=== PATIENT | male | born 1985 | race Caucasian/White ===

== ENCOUNTER 2020-05-17 15:41 | Inpatient (IN) ==
[2020-05-17] MEDS ORDERED: FAMOTIDINE 20MG IV PUSH 20 MG/5 ML SYR IV STA (16:06)
[2020-05-17] MEDS ORDERED: methylPREDNISolone 125 MG/2 ML VIAL IV STA (16:06)
--- NOTE | 2020-05-17 16:13 | Emergency Department Note ---
History of Present Illness General Chief complaint: Shortness of Breath/Dyspnea Stated complaint: [id number] RACING-SORE THROAT Time Seen by Provider: 05/17/20 15:50 History of Present Illness Maximum Pain Intensity: 10 This is a 35-year-old male that presents to the emergency department via private vehicle with complaints "headache, chills, dizzy, shortness of breath, heart racing, sore throat". The patient notes that around Zeinab time of this past year he began feeling nauseous and dizzy. He notes he took some time off of work. He had a Covid test for Monday which was negative. He then began to feel better. He then noted he developed symptoms that he attributes to being similar to bronchitis. He had chest tightness and a cough. When he lays on his back it is worse and he feels like he is being "smothered". He also times feels like he is choking. He has tried Vicks VapoRub, cough suppressant, albuterol and nebulized without relief. At times he will feel his heart race. Today he vomited. He also feels as though he has to burp. He notes some mild chest pain that he believes is secondary to coughing. No hemoptysis. He notes that the cough is constant but the pain and discomfort can be hit and miss. No history of TX or PE. Patient had a 15 mL of Benadryl also earlier today as he noted some tongue swelling. He rates his overall discomfort at this time as a 10/10. Home Medications Medication Instructions Recorded Confirmed Type albuterol sulfate [Ventolin HFA] 2 puff INHALATION DIRECTED PRN 05/17/20 05/17/20 History ascorbic acid (vitamin C) [Vitamin 500 mg PO DAILY 05/17/20 05/17/20 History C] Allergies Allergy/AdvReac Type Severity Reaction Status Date / Time banana Allergy Severe Anaphylaxis Verified 05/17/20 16:49 erythromycin base Allergy Severe Anaphylaxis Verified 05/17/20 16:49 Penicillins Allergy Severe Anaphylaxis Verified 05/17/20 16:49 shellfish derived Allergy Severe Anaphylaxis Verified 05/17/20 16:49 strawberry Allergy Severe Anaphylaxis Verified 05/17/20 16:49 chocolate flavor Allergy Intermediate Hives Verified 05/17/20 16:49 Past Med/Surg History Medical History Penicillin allergy Surgical History No pertinent past surgical history Social History Smoking Status: Never smoker Hx Alcohol Use: Yes Alcohol type: hard liquor Hx Substance Use: Yes Last Used Substance: Days (ago) Last Used Substance Other:: new years Preferred Language: [place]i Communication Ability: Effective Beliefs That Will Affect Care: Amish Amish Beliefs: does not eat pork Current Living Situation: Family Current Living Situation Comment: girlfriend and children Other Information That Helps Us Care for You: No Feels Safe at Home: Yes Safety Concerns: Feels Safe At This Time Assistive Devices: None Review of Systems A total of 10 systems reviewed and were otherwise negative Physical Exam Vital Signs Vital Signs - 24 hr 05/17/20 15:44 05/17/20 16:23 05/17/20 16:25 Temperature 37.7 C H Temperature Source Temporal Artery Scan Pulse Rate 128 H 127 H 128 H Pulse Rate [Apical] 127 H Pulse Rate from SpO2 Sensor 175 H Pulse Rhythm Regular Pulse Rhythm [Apical] Regular Pulse Strength [Apical] Normal Respiratory Rate 24 28 H 32 H Respiratory Effort / Characteristics Non-Labored Spontaneous Nasal Flaring Respiratory Depth Normal Respiratory Pattern Regular Blood Pressure 161/108 H 177/122 H Blood Pressure [Right Arm] 177/122 H Blood Pressure Mean 125 140 Blood Pressure Mean [Right Arm] 140 Blood Pressure Position [Right Arm] Semi-fowlers Pulse Oximetry 96 97 96 Oxygen Delivery Method Room Air Room Air Room Air Sepsis Recent Fever Within 48 Hours Yes Sepsis New/Unexplained Change in Mental Status N/A Sepsis Action Taken by Nursing No Action Required 05/17/20 17:04 05/17/20 17:30 05/17/20 18:00 Temperature Temperature Source Pulse Rate Pulse Rate [Apical] Pulse Rate from SpO2 Sensor 129 H 119 H 117 H Pulse Rhythm Pulse Rhythm [Apical] Pulse Strength [Apical] Respiratory Rate Respiratory Effort / Characteristics Respiratory Depth Respiratory Pattern Blood Pressure Blood Pressure [Right Arm] Blood Pressure Mean Blood Pressure Mean [Right Arm] Blood Pressure Position [Right Arm] Pulse Oximetry 98 99 96 Oxygen Delivery Method Sepsis Recent Fever Within 48 Hours Sepsis New/Unexplained Change in Mental Status Sepsis Action Taken by Nursing 05/17/20 18:30 05/17/20 18:43 05/17/20 19:00 Temperature Temperature Source Pulse Rate 124 H 118 H Pulse Rate [Apical] Pulse Rate from SpO2 Sensor 122 H 131 H 118 H Pulse Rhythm Pulse Rhythm [Apical] Pulse Strength [Apical] Respiratory Rate 31 H 28 H Respiratory Effort / Characteristics Respiratory Depth Respiratory Pattern Blood Pressure 181/119 H Blood Pressure [Right Arm] Blood Pressure Mean 139 Blood Pressure Mean [Right Arm] Blood Pressure Position [Right Arm] Pulse Oximetry 100 98 98 Oxygen Delivery Method Sepsis Recent Fever Within 48 Hours Sepsis New/Unexplained Change in Mental Status Sepsis Action Taken by Nursing 05/17/20 19:30 05/17/20 20:00 Temperature Temperature Source Pulse Rate 120 H Pulse Rate [Apical] Pulse Rate from SpO2 Sensor Pulse Rhythm Pulse Rhythm [Apical] Pulse Strength [Apical] Respiratory Rate 30 H 16 Respiratory Effort / Characteristics Respiratory Depth Respiratory Pattern Blood Pressure Blood Pressure [Right Arm] Blood Pressure Mean Blood Pressure Mean [Right Arm] Blood Pressure Position [Right Arm] Pulse Oximetry Oxygen Delivery Method Sepsis Recent Fever Within 48 Hours Sepsis New/Unexplained Change in Mental Status Sepsis Action Taken by Nursing VITAL SIGNS - Vital signs and nursing notes were reviewed. Hypertensive, tachycardic, tachypneic and borderline febrile. Saturating well on room air. GENERAL -35-year-old male appearing his stated age who is in no acute distress. Communicates well with provider and answers questions appropriately. SKIN - Without rashes. No meningeal or petechial rash. HEAD - NC/AT. EYES - PERRL with EOMI bilaterally. Sclera anicteric. EARS - No deformities of external structures noted on gross examination bilaterally. NOSE - Midline and without cyanosis. No epistaxis or purulent drainage noted. MOUTH/OROPHARYNX - Without perioral cyanosis. NECK - Neck with FROM. No nuchal rigidity. LUNGS -decreased breath sounds bilaterally. CARDIAC - RRR with S1/S2. No murmur, rubs, or gallops appreciated. ABDOMEN - Abdominal contour without pulsations or visible masses. BS normoactive all four quadrants. No tenderness, palpable masses, hepatosplenomegaly, or ascites noted. EXTREMITIES - No clubbing or peripheral cyanosis. No pretibial edema present. +5/5 strength noted in UE/LE bilaterally. NEUROLOGIC - Cranial nerves II through XII grossly intact. PSYCH - A&O, and cooperates fully with examiner. Pt is very pleasant and int eracts well with examiner. Course Administered Medications Acetaminophen (Acetaminophen 325 Mg Tab) 650 mg PO Q4H PRN PRN Reason: Pain or Fever Stop: 06/16/20 22:18 Last Admin: 05/17/20 23:18 Dose: 650 mg Documented by: [id number] Heparin Sodium (Porcine) (Heparin Sod 5,000 Unit/0.5 Ml Vial) 5,000 units SQ Q8 NERI Stop: 06/16/20 22:18 Last Admin: 05/17/20 23:58 Dose: 5,000 units Documented by: [id number] Discontinued Medications Diphenhydramine HCl (Diphenhydramine 50 Mg/Ml Vial) 25 mg IV NOW STA Stop: 05/17/20 18:28 Last Admin: 05/17/20 18:30 Dose: 25 mg Documented by: [id number] Furosemide (Furosemide 40 Mg/4 Ml Vial) 40 mg IV NOW STA Stop: 05/17/20 19:02 Last Admin: 05/17/20 19:48 Dose: 40 mg Documented by: [id number] Sodium Chloride (Nss 1000ml) 1,000 mls @ 999 mls/hr IV .Q1H1M NERI Stop: 05/17/20 17:15 Last Infusion: 05/17/20 18:22 Dose: 0 mls/hr Documented by: [id number] Admin: 05/17/20 17:21 Dose: 999 mls/hr Documented by: [id number] Famotidine (Pepcid 20mg Iv Push) 20 mg in 5 mls @ 2.5 mls/min IV NOW STA Stop: 05/17/20 16:07 Last Admin: 05/17/20 17:21 Dose: 2.5 mls/min Documented by: [id number] Furosemide 40 mg/ Syringe 4 mls @ 4 mls/min IV 0000 ONE Stop: 05/18/20 00:01 Last Admin: 05/17/20 23:19 Dose: 4 mls/min Documented by: [id number] Ioversol (Optiray 320 125ml) 120 ml IV ONCE ONE Stop: 05/17/20 18:29 Last Admin: 05/17/20 18:29 Dose: 120 ml Documented by: [id number] Methylprednisolone (Methylprednisolone 125 Mg/2 Ml Vial) 125 mg IV NOW STA Stop: 05/17/20 16:07 Last Admin: 05/17/20 17:21 Dose: 125 mg Documented by: [id number] Medical Decision Making Laboratory Data Result diagrams: 05/17/20 16:44 05/17/20 16:44 Lab Results 05/17/20 05/17/20 05/17/20 Range/Units 16:27 16:27 16:44 WBC 8.34 (4.8-10.8) K/uL RBC 4.60 L (4.7-6.1) M/uL Hgb 11.8 L (14.0-18.0) g/dL Hct 36.6 L (42-52) % MCV 79.6 L (80-100) fL MCH 25.7 (25-34) pg MCHC 32.2 (32-36) g/dL RDW Std Deviation 41.9 (36.4-46.3) fL RDW Coeff of [place] 14.6 H (11.5-14.5) % Plt Count 369 (130-400) K/uL MPV 10.3 (7.4-10.4) fL Immature Gran % (Auto) 0.1 % Neut % (Auto) 74.7 % Lymph % (Auto) 17.9 % [place] % (Auto) 6.7 % Eos % (Auto) 0.5 % Baso % (Auto) 0.1 % Neut # (Auto) 6.23 (1.4-6.5) K/uL Lymph # (Auto) 1.49 (1.2-3.4) K/uL [place] # (Auto) 0.56 (0.11-0.59) K/uL Eos # (Auto) 0.04 (0-0.5) K/uL Baso # (Auto) 0.01 (0-0.2) K/uL Immature Gran # (Auto) 0.01 (0.00-0.02) K/uL PT (9.0-12.0) Seconds INR (0.9-1.1) APTT (21.0-31.0) Seconds PTT Ratio Sodium (136-145) mmol/L Potassium (3.5-5.1) mmol/L Chloride (98-107) mmol/L Carbon Dioxide (21-32) mmol/L Anion Gap (3-11) BUN (7-18) mg/dl Creatinine (0.6-1.4) mg/dl Est Cr Clr Drug Dosing ml/min Est GFR ( Amer) Est GFR (Non-Af Amer) BUN/Creatinine Ratio (10-20) Glucose (70-99) mg/dl Calcium (8.5-10.1) mg/dl Magnesium (1.8-2.4) mg/dl Total Bilirubin (0.2-1) mg/dl AST (15-37) U/L ALT (12-78) U/L Alkaline Phosphatase (45-117) U/L Troponin I (0-0.045) ng/ml NT-Pro-B Natriuret Pep (0-450) pg/ml Total Protein (6.4-8.2) gm/dl Albumin (3.4-5.0) gm/dl Globulin (2.5-4.0) gm/dl Albumin/Globulin Ratio (0.9-2) Procalcitonin (0-0.5) ng/ml COVID-19 Eval [facility] SARS-[facility]-2, RNA, NAAT NEGATIVE (NEGATIVE) 05/17/20 05/17/20 05/17/20 Range/Units 16:44 16:44 16:44 WBC (4.8-10.8) K/uL RBC (4.7-6.1) M/uL Hgb (14.0-18.0) g/dL Hct (42-52) % MCV (80-100) fL MCH (25-34) pg MCHC (32-36) g/dL RDW Std Deviation (36.4-46.3) fL RDW Coeff of [place] (11.5-14.5) % Plt Count (130-400) K/uL MPV (7.4-10.4) fL Immature Gran % (Auto) % Neut % (Auto) % Lymph % (Auto) % [place] % (Auto) % Eos % (Auto) % Baso % (Auto) % Neut # (Auto) (1.4-6.5) K/uL Lymph # (Auto) (1.2-3.4) K/uL [place] # (Auto) (0.11-0.59) K/uL Eos # (Auto) (0-0.5) K/uL Baso # (Auto) (0-0.2) K/uL Immature Gran # (Auto) (0.00-0.02) K/uL PT 10.7 (9.0-12.0) Seconds INR 1.1 (0.9-1.1) APTT 26.0 (21.0-31.0) Seconds PTT Ratio 1.0 Sodium 142 (136-145) mmol/L Potassium 4.1 (3.5-5.1) mmol/L Chloride 108 H (98-107) mmol/L Carbon Dioxide 27 (21-32) mmol/L Anion Gap 7.0 (3-11) BUN 12 (7-18) mg/dl Creatinine 1.42 H (0.6-1.4) mg/dl Est Cr Clr Drug Dosing 117.7 ml/min Est GFR ( Amer) 73.1 Est GFR (Non-Af Amer) 63.1 BUN/Creatinine Ratio 8.3 L (10-20) Glucose 105 H (70-99) mg/dl Calcium 9.2 (8.5-10.1) mg/dl Magnesium 2.3 (1.8-2.4) mg/dl Total Bilirubin 0.4 (0.2-1) mg/dl AST 17 (15-37) U/L ALT 52 (12-78) U/L Alkaline Phosphatase 54 (45-117) U/L Troponin I 0.024 (0-0.045) ng/ml NT-Pro-B Natriuret Pep 1536 H Cancelled (0-450) pg/ml Total Protein 7.0 (6.4-8.2) gm/dl Albumin 3.4 (3.4-5.0) gm/dl Globulin 3.6 (2.5-4.0) gm/dl Albumin/Globulin Ratio 0.9 (0.9-2) Procalcitonin (0-0.5) ng/ml COVID-19 Eval Order SARS-CoV-2, RNA, NAAT (NEGATIVE) 05/17/20 Range/Units 16:44 WBC (4.8-10.8) K/uL RBC (4.7-6.1) M/uL Hgb (14.0-18.0) g/dL Hct (42-52) % MCV (80-100) fL MCH (25-34) pg MCHC (32-36) g/dL RDW Std Deviation (36.4-46.3) fL RDW Coeff of [place] (11.5-14.5) % Plt Count (130-400) K/uL MPV (7.4-10.4) fL Immature Gran % (Auto) % Neut % (Auto) % Lymph % (Auto) % [place] % (Auto) % Eos % (Auto) % Baso % (Auto) % Neut # (Auto) (1.4-6.5) K/uL Lymph # (Auto) (1.2-3.4) K/uL [place] # (Auto) (0.11-0.59) K/uL Eos # (Auto) (0-0.5) K/uL Baso # (Auto) (0-0.2) K/uL Immature Gran # (Auto) (0.00-0.02) K/uL PT (9.0-12.0) Seconds INR (0.9-1.1) APTT (21.0-31.0) Seconds PTT Ratio Sodium (136-145) mmol/L Potassium (3.5-5.1) mmol/L Chloride (98-107) mmol/L Carbon Dioxide (21-32) mmol/L Anion Gap (3-11) BUN (7-18) mg/dl Creatinine (0.6-1.4) mg/dl Est Cr Clr Drug Dosing ml/min Est GFR ( Amer) Est GFR (Non-Af Amer) BUN/Creatinine Ratio (10-20) Glucose (70-99) mg/dl Calcium (8.5-10.1) mg/dl Magnesium (1.8-2.4) mg/dl Total Bilirubin (0.2-1) mg/dl AST (15-37) U/L ALT (12-78) U/L Alkaline Phosphatase (45-117) U/L Troponin I (0-0.045) ng/ml NT-Pro-B Natriuret Pep (0-450) pg/ml Total Protein (6.4-8.2) gm/dl Albumin (3.4-5.0) gm/dl Globulin (2.5-4.0) gm/dl Albumin/Globulin Ratio (0.9-2) Procalcitonin 0.06 (0-0.5) ng/ml COVID-19 Eval Order SARS-CoV-2, RNA, NAAT (NEGATIVE) Imaging Data Radiologist's Impression: CT angio chest PE protocol CT DOSE: 929.39 mGy.cm HISTORY: 35 years-old Male with Chest pain, dyspnea, tachypnea, cough. Acute atypical chest pain with tachypnea TECHNIQUE: Multiple CTA images of the chest were obtained after the intravenous administration of 120 ml Optiray 320. Coronal and sagittal MIPS were obtained from the axial data set and were submitted for review. All measurements were obtained according to NASCET criteria. A dose lowering technique was utilized adhering to the principles of ALARA. COMPARISON: None. FINDINGS: CTA: Moderate enlargement of the cardiac silhouette. No thoracic aortic aneurysm. Patency of the imaged great vessels. Pulmonary artery is opacified to level of the lumbar segments and demonstrates no filling defects to suggest thromboembolic disease. Segmental and subsegmental branches are not well seen secondary to contrast bolus timing. CT CHEST: Unremarkable thyroid. Nonspecific mildly enlarged left axillary chain lymph node, 1.2 cm. Residual thymic tissue of the mediastinum. Trace left and small moderate right pleural effusions. No pneumothorax. Mild bilateral bronchial wall thickening. Mild patchy bibasilar groundglass opacities. 7 mm nodular opacity of the basal right lower lobe, image 101 series 4. Central airways are patent. Hepatomegaly with hepatic steatosis. Gynecomastia. No acute fracture. IMPRESSION: 1. Cardiomegaly without evidence of pulmonary emboli. 2. Right greater than left pleural effusions with minimal bibasilar densities suggestive of atelectasis versus pneumonitis. 3. 7 mm solid nodule of the right lower lobe. 4. Mild bilateral bronchial wall thickening suggests bronchitis versus reactive airway disease. 5. Hepatic steatosis. Please refer to below summary of Fleischner criteria recommendations for follow- up of incidental CT nodules (Joseph Asher, Guidelines for management of small pulmonary nodules detected on CT scans: A statement from the Fleischner Society, Radiology 237: [phone].) SOLID NODULES Solitary nodule size: <6 mm * Low risk patients: no follow-up needed * high risk patients: optional CT at 12 months Solitary nodule size: 6-8 mm * Low risk patients: follow-up at 6-12 months, then consider further follow-up at 18-24 months * high risk patients: initial follow-up CT at 6-12 months and then at 18-24 months if no change Note: newly detected indeterminate nodule in persons 35 years of age or older. * Low risk patients: minimal or absent history of smoking and/or other known risk factors * high risk patients: history of smoking or of other known risk factors (e.g. first degree relative with lung cancer, or exposure to asbestos, radon, uranium) * if a nodule up to 8 mm is partly solid or is ground glass further follow-up is required after 24 months to exclude possible slow growing adenocarcinoma (KANE) ACT 112: Negative or not required by law. The above report was generated using voice recognition software. It may contain grammatical, syntax or spelling errors. Electronically signed by: Cayetano Bennett M.D. 05/17/2020 6:51 PM MDM Narrative Patient was seen and evaluated as above in room C1. Review was performed of nursing notes and vital signs. After obtaining a thorough history and physical examination the above work up was performed. Patient presents to us today with headache, chills, dizziness, shortness of breath, racing heart and inability to lay flat. On examination there are decreased breath sounds. The patient does have increased work of breathing on examination and is most comfortable sitting in the upright position at the edge of the examination bed. The patient's vital signs on exam to reveal borderline febrile state, tachycardia as well as hypertension. Patient is also tachypneic. Options of care were discussed with the patient. I do believe that it is in the patient's best interest to have a CTA of the chest to rule out PE and further evaluate presentation here today. Unfortunately, the patient does note that he has had anaphylaxis secondary to IV contrast and often requires premedication. The patient states that this is normally 1 hour prior to the imaging. He already had Benadryl prior to arrival therefore while waiting he was given Solu-Medrol here as well as Pepcid for premedication prior to IV contrast administration. I also began hydration but this was stopped at about [address] scan was then obtained. Just before he went to the CT scanner I did provide another dose of Benadryl which was felt to be appropriate at that time. Care was taken so as not to give too much Benadryl noting what he had prior to arrival. Patient was able to successfully undergo CT scanning without any significant adverse reaction. CT scan results as above. There is no PE. There is cardiomegaly. There are also pleural effusions. Pleural effusions are likely the etiology behind the patient's dyspnea. Laboratory studies reveal no leukocytosis. Mild anemia noted. No coagulopathy. Creatinine elevated at 1.42. BNP mildly elevated at 1536. Troponin detectable but still within normal range. Pro-Valentino within normal limits. Covid testing negative. The patient does not appear infectious. He was given a dose of IV Lasix for findings here today. I do believe that further evaluation and management in inpatient setting is warranted. The patient at this point persists with tachycardia and dyspnea. Case discussed with the attending physician and subsequently the hospitalist. Please refer to further documentation regarding his stay. EKG was reviewed by myself and found to be sinus tachycardia rate of 128 bpm and per my interpretation does reveal T wave inversions in lead II, III, V1, V4, V5 and V6. There was T wave flattening noted as well. No ST elevation. No true ST segment depression. No previous for comparison. An order was placed for continuous cardiac monitoring. The monitor shows a rate of 124 with sinus tach rhythm. GCS: 15 In the evaluation and treatment of this patient, the following differential diagnoses were considered: TX, ASC, Dysrhythmia, Angina, Mediastinitis, GERD, Esophagitis, PE, Pneumonia, Bronchitis, Costochondritis, Rib Fracture, Zoster, congestive heart failure, cardiomyopathy, among others. Impression & Plan Bilateral pleural effusion, Cardiomegaly, Dyspnea, ROSSY (acute kidney injury) Discharge Plan Visit Data Chief Complaint: Shortness of Breath/Dyspnea Stated Complaint: [id number]-HEART RACING-SORE THROAT ED Provider: [facility] ED Midlevel Provider: Rohith Brown Discharge Problem: Bilateral pleural effusion, Cardiomegaly, Dyspnea, ROSSY (acute kidney injury) Patient Disposition: Admitted As Inpatient Condition: Good Discharge Instructions Interventions: ED Discharge Assessment Last Done: 05/17/20 21:39
[2020-05-17] MEDS ORDERED: SODIUM CHLORIDE 0.9% 1000ML 1,000 ML IV SCH (16:15)
[2020-05-17 17:01] LABS: Basophils # (auto) 0.01 K/uL (0-0.2); Basophils % (auto) 0.1 %; Eosinophils # (auto) 0.04 K/uL (0-0.5); Eosinophils % (auto) 0.5 %; Hematocrit (blood only) 36.6 % (42-52); Hemoglobin 11.8 g/dL (14.0-18.0); Immature Granulocytes # (auto) 0.01 K/uL (0.00-0.02); Immature Granulocytes % (auto) 0.1 %; Lymphocytes # (auto) 1.49 K/uL (1.2-3.4); Lymphocytes % (auto) 17.9 %; Mean Corpuscular Hemoglobin 25.7 pg (25-34); Mean Corpuscular Hgb Conc 32.2 g/dL (32-36); Mean Corpuscular Volume 79.6 fL (80-100); Mean Platelet Volume 10.3 fL (7.4-10.4); Monocytes # (auto) 0.56 K/uL (0.11-0.59); Monocytes % (auto) 6.7 %; Neutrophils # (auto) 6.23 K/uL (1.4-6.5); Neutrophils % (auto) 74.7 %; Platelet Count 369 K/uL (130-400); RDW Coefficient of Variation 14.6 % (11.5-14.5); RDW Standard Deviation 41.9 fL (36.4-46.3); White Blood Count 8.34 K/uL (4.8-10.8)
[2020-05-17 17:13] LABS: INR 1.1 (0.9-1.1); Prothrombin Time 10.7 Seconds (9.0-12.0)
[2020-05-17 17:19] LABS: Albumin Level 3.4 gm/dl (3.4-5.0); BUN Creatinine Ratio 8.3 (10-20); Calcium 9.2 mg/dl (8.5-10.1); Creatinine Clr Calc Pharmacy 117.7 ml/min; Est GFR (African American) 73.1; Est GFR (Non-African American) 63.1; Magnesium 2.3 mg/dl (1.8-2.4); Potassium 4.1 mmol/L (3.5-5.1)
[2020-05-17 17:24] LABS: Albumin Globulin Ratio 0.9 (0.9-2); Bilirubin,Total 0.4 mg/dl (0.2-1); Globulin 3.6 gm/dl (2.5-4.0); Troponin I 0.024 ng/ml (0-0.045)
[2020-05-17] MEDS ORDERED: diphenhydrAMINE 50 MG/ML VIAL IV STA (18:27)
[2020-05-17] MEDS ORDERED: OPTIRAY 320 125ml IV ONE (18:28)
--- NOTE | 2020-05-17 18:52 | CT Scan Report ---
CT angio chest PE protocol CT DOSE: 929.39 mGy.cm HISTORY: 35 years-old Male with Chest pain, dyspnea, tachypnea, cough. Acute atypical chest pain wi th tachypnea TECHNIQUE: Multiple CTA images of the chest were obtained after the intravenous administration of 120 ml Optiray 320. Coronal and sagittal MIPS were obtained from the axial data set and were submitted for review. All measurements were obtained according to NASCET criteria. A dose lowering technique w as utilized adhering to the principles of ALARA. COMPARISON: None. FINDINGS: CTA: Moderate enlargement of the cardiac silhouette. No thoracic aortic aneurysm. Patency of the imaged gr eat vessels. Pulmonary artery is opacified to level of the lumbar segments and demonstrates no fillin g defects to suggest thromboembolic disease. Segmental and subsegmental branches are not well seen se condary to contrast bolus timing. CT CHEST: Unremarkable thyroid. Nonspecific mildly enlarged left axillary chain lymph node, 1.2 cm. Residual th ymic tissue of the mediastinum. Trace left and small moderate right pleural effusions. No pneumothora x. Mild bilateral bronchial wall thickening. Mild patchy bibasilar groundglass opacities. 7 mm nodula r opacity of the basal right lower lobe, image 101 series 4. Central airways are patent. Hepatomegaly with hepatic steatosis. Gynecomastia. No acute fracture. IMPRESSION: 1. Cardiomegaly without evidence of pulmonary emboli. 2. Right greater than left pleural effusions with minimal bibasilar densities suggestive of atelectas is versus pneumonitis. 3. 7 mm solid nodule of the right lower lobe. 4. Mild bilateral bronchial wall thickening suggests bronchitis versus reactive airway disease. 5. Hepatic steatosis. Please refer to below summary of Fleischner criteria recommendations for follow-up of incidental CT n odules (Joseph Asher, Guidelines for management of small pulmonary nodules detected on CT scans: A sta tement from the Fleischner Society, Radiology 237: [phone].) SOLID NODULES Solitary nodule size: <6 mm * Low risk patients: no follow-up needed * high risk patients: optional CT at 12 months Solitary nodule size: 6-8 mm * Low risk patients: follow-up at 6-12 months, then consider further follow-up at 18-24 months * high risk patients: initial follow-up CT at 6-12 months and then at 18-24 months if no change Note: newly detected indeterminate nodule in persons 35 years of age or older. * Low risk patients: minimal or absent history of smoking and/or other known risk factors * high risk patients: history of smoking or of other known risk factors (e.g. first degree relative with lung cancer, or exposure to asbestos, radon, uranium) * if a nodule up to 8 mm is partly solid or is ground glass further follow-up is required after 24 m onths to exclude possible slow growing adenocarcinoma (KANE) ACT 112: Negative or not required by law. The above report was generated using voice recognition software. It may contain grammatical, syntax o r spelling errors. Electronically signed by: Cayetano Bennett M.D. 05/17/2020 6:51 PM
[2020-05-17] MEDS ORDERED: FUROSEMIDE 40 MG/4 ML VIAL IV STA (19:01)
--- NOTE | 2020-05-17 20:38 | History & Physical Report ---
Date of Service May 17, 2020 Assessment & Plan (1) Dyspnea: 35 yo M no PMHx admitted for dyspnea, found to have enlarged cardiac silhouette and bilateral pleural effusions. Dyspnea and tachypnea without hypoxia: Reports 1-2 weeks of worsening dyspnea and inability to lie flat or bend forward without feeling like he is "choking". Noted to be hypertensive, tachycardic, tachypneic in ER. Not noted to be hypoxic. CT PE without signs of PE, some bronchial inflammation possibly consistent with bronchitis. Bilateral pleural effusions and atelectasis noted. CXR noted enlarged cardiac silhouette. While patient did meet several SIRS criteria in the ER, no findings on imaging or labwork to suggest pneumonia or other infectious source. COVID 19 testing negative. Lasix 40 mg IV x1 given, with repeat dose at midnight 05/18. Suspect underlying cardiac etiology given enlarged cardiac silhouette and bilateral pleural effusions, elevated pro-BNP to 1536. TTE in the morning. Incentive spirometer every hour while awake. ? ROSSY: In ER patient found to have creatinine 1.42, no baseline to compare. Given findings suggestive of CHF, concern for decreased forward flow. Patient does not examine as clinically dry. Will repeat in the morning to see if creatinine has improved with Lasix admi nistration. Pulmonary nodule: 7 mm solid nodule noted in the right lower lobe. Patient does not have a history of smoking cigarettes, however prior to this March was a relatively chronic marijuana smoker. Will require follow-up per Fleischner criteria. CODE STATUS: Full code FEN GI: Low-sodium diet pending TTE DVT prophylaxis: Heparin 5000u q8h Dispo: Telemetry for continuous cardiac monitoring (2) Enlarged heart: (3) Bilateral pleural effusion: (4) Pulmonary nodule: (5) ROSSY (acute kidney injury): History of Present Illness Chief Complaint: Dyspnea Primary Care Provider: NO PCP 35 yo M no PMHx presented to the ER for complaints of worsening dyspnea over the last 10 or so days, such that he cannot lie flat or bend forward without feeling like he is "choking". Reports that around New Year's, he had some episodes of shortness of breath but that seemed to go away after couple of days. Over the last 10 days however, he has been barely getting any rest at night because when he lies flat he feels like he cannot breathe, feels most comfortable sitting upright. Also starts to feel short of breath when he bends over to tie his shoes. No tobacco smoking history, but does endorse a history of marijuana smoking prior to his illness around '. Also endorses a cough during this time, nonproductive, and due to the amount of coughing has started to have some chest tightness. No chest pain down the arm, up the jaw. No dizziness or headache. Did try home nebulizer treatments with mild relief however he would start to feel his heart race. In the ER patient was noted to be tachycardic, hypertensive, tachypneic, afebrile, saturating well on room air. WBCs normal, creatinine 1.42, proBNP 1536. Covid negative. CT PE protocol performed without findings suggestive of PE or pneumonia Allergies Allergy/AdvReac Type Severity Reaction Status Date / Time banana Allergy Severe Anaphylaxis Verified 05/17/20 16:49 erythromycin base Allergy Severe Anaphylaxis Verified 05/17/20 16:49 Penicillins Allergy Severe Anaphylaxis Verified 05/17/20 16:49 shellfish derived Allergy Severe Anaphylaxis Verified 05/17/20 16:49 strawberry Allergy Severe Anaphylaxis Verified 05/17/20 16:49 chocolate flavor Allergy Intermediate Hives Verified 05/17/20 16:49 Home Medications Medication Instructions Recorded Confirmed Type albuterol sulfate [Ventolin HFA] 2 puff INHALATION DIRECTED PRN 05/17/20 05/17/20 History ferrous sulfate 325 mg PO BID #60 tab 05/23/20 Rx furosemide 20 mg PO QAM #30 tab 05/23/20 Rx losartan 25 mg PO QAM #30 tab 05/23/20 Rx metoprolol succinate 50 mg PO QAM #30 tab 05/23/20 Rx pantoprazole [Protonix] 40 mg PO QAM #30 tab 05/23/20 Rx potassium chloride [Klor-Con M10] 10 meq PO DAILY #30 tab 05/23/20 Rx sucralfate [Carafate] 1 g PO TID 7 Days #21 tab 05/23/20 Rx Past Med/Surg History Medical History (Updated 05/24/20 @ 00:05 by Valerie Denny) Bilateral pleural effusion Elevated serum creatinine Penicillin allergy Surgical History No pertinent past surgical history Social History Smoking Status: Never smoker Hx Alcohol Use: Yes Alcohol type: hard liquor Hx Substance Use: Yes Last Used Substance: Days (ago) Last Used Substance Other:: new years Preferred Language: Peruvian Communication Ability: Effective Beliefs That Will Affect Care: Amish Amish Beliefs: does not eat pork Current Living Situation: Family Current Living Situation Comment: girlfriend and children Feels Safe at Home: Yes Assistive Devices: None Review of Systems Review of Systems: All systems reviewed & are unremarkable except as noted in HPI & below Constitutional: + malaise; no fever and no chills Respiratory: + dyspnea; no cough Cardiovascular: + chest pain (chest wall pain with coughing); no palpitations and no edema Gastrointestinal: no abdominal pain, no constipation and no diarrhea/loose stools Physical Exam Constitutional: well developed, + ill appearing and + morbidly obese Eyes: PERRL, conjunctivae normal, anicteric sclerae ENMT: external ear and nose normal, oropharynx normal Neck: normal visual inspection Respiratory: decreased breath sound bilateral worst at bases, tachypneic Cardiovascular: Rate/Rhythm: regular rhythm and + tachycardic Heart Sounds: no murmur Extremities: + edema (trace bilateral LE) Gastrointestinal (Abdomen): Inspection/Auscultation: + abdomen distended and normal bowel sounds Percussion/Palpation: abdomen soft; abdomen nontender Musculoskeletal: no cyanosis or clubbing, extremities motor strength 5/5 Skin: no rashes, warm and dry Neurologic: AAOx3, normal speech. Bilateral UE, LE, and face without sensory or motor deficits. No tremor. Psychiatric: A+Ox3, euthymic affect Results & Data Results & Data ([facility]) Vital Signs (Past 12 Hours) Vital Signs Temp Pulse Pulse Resp BP BP Pulse Ox 05/17/20 16:25 128 H 127 H 32 H 177/122 H 177/122 H 96 05/17/20 16:23 127 H 28 H 97 05/17/20 15:44 37.7 C H 128 H 24 161/108 H 96 Code Status & VTE Plan VTE Prophylaxis Plan VTE Prophylaxis will be ordered: Yes Supervising Physician Co-Signing Physician Notes Attending addendum: I have physically seen this patient, have supervised the medical residents activities, and agree with the H&P unless as otherwise noted. Assessment and Plan: CHF/bilateral pleural effusions- The patient will be admitted to telemetry for serial cardiac enzymes, serial EKG's, cardiac rhythm monitoring and a 2-D echocardiogram with Dopplers. Received Lasix 40 mg IV x1 in the ED, and will repeat in the a.m. Follow serial chest x-rays and BMP consult cardiology 7 mm pulmonary nodule right lower lobe- Follow-up as outpatient Remaining orders and notations as noted Resident Activity Tracking Resident Involvement: Resident Care Provided Care Provided: Adult Hospital Medicine
[2020-05-17] MEDS ORDERED: POLYETHYLENE (MIRALAX) 17 GM PACK PO PRN (22:19)
[2020-05-17] MEDS ORDERED: ONDANSETRON INJ 2 MG/ML 2 ML VIAL IV PRN (22:19)
[2020-05-17] MEDS ORDERED: methylPREDNISolone 125 MG in SYRINGE 0 ML IV ONE (23:00)
[2020-05-17] MEDS: ACETAMINOPHEN 325 MG TAB PO PRN (23:18)
[2020-05-17] MEDS: HEPARIN SOD 5,000 UNIT/0.5 ML VIAL SQ SCH (23:58)
[2020-05-18] MEDS ORDERED: FUROSEMIDE 40 MG/4 ML VIAL IV ONE ×2
[2020-05-18] MEDS ORDERED: FUROSEMIDE 40 MG in SYRINGE 0 ML IV ONE
[2020-05-18 00:58] LABS: Appearance Urine Clear (Clear); Bilirubin Urine Negative (Negative); Blood Urine Negative (Negative); Color Urine Yellow; Glucose Urine UA Negative (Negative); Ketones Urine Negative (Negative); Leukocyte Esterase Urine Negative (Negative); Nitrite Urine Negative (Negative); Protein Urine Negative (Negative); Specific Gravity Urine 1.013 (1.000-1.030); Urobilinogen Urine Negative (Negative)
[2020-05-18] MEDS ORDERED: methylPREDNISolone 125 MG in SYRINGE 0 ML IV ONE (05:00)
[2020-05-18] MEDS ORDERED: methylPREDNISolone 125 MG/2 ML VIAL IV ONE ×2 (05:30)
[2020-05-18] MEDS: HEPARIN SOD 5,000 UNIT/0.5 ML VIAL SQ SCH ×3 (05:57→21:42)
[2020-05-18 06:15] LABS: Hematocrit (blood only) 37.2 % (42-52); Hemoglobin 11.8 g/dL (14.0-18.0); Immature Granulocytes # (auto) 0.01 K/uL (0.00-0.02); Immature Granulocytes % (auto) 0.1 %; Lymphocytes # (auto) 0.89 K/uL (1.2-3.4); Lymphocytes % (auto) 10.3 %; Mean Corpuscular Hemoglobin 25.4 pg (25-34); Mean Corpuscular Hgb Conc 31.7 g/dL (32-36); Mean Platelet Volume 10.2 fL (7.4-10.4); Monocytes # (auto) 0.23 K/uL (0.11-0.59); Monocytes % (auto) 2.6 %; Neutrophils # (auto) 7.55 K/uL (1.4-6.5); Platelet Count 361 K/uL (130-400); RDW Coefficient of Variation 14.5 % (11.5-14.5); Red Blood Count 4.65 M/uL (4.7-6.1); White Blood Count 8.68 K/uL (4.8-10.8)
[2020-05-18 06:52] LABS: BUN Creatinine Ratio 9.8 (10-20); Calcium 9.2 mg/dl (8.5-10.1); Creatinine Clr Calc Pharmacy 108.3 ml/min; Est GFR (African American) 66.3; Est GFR (Non-African American) 57.2; Potassium 4.2 mmol/L (3.5-5.1)
--- NOTE | 2020-05-18 08:22 | XCELERA ---
[id number] \\[id number]
--- NOTE | 2020-05-18 08:56 | Electrocardiogram Report ---
Test Reason : Blood Pressure : / mmHG Vent. Rate : 128 BPM Atrial Rate : 128 BPM P-R Int : 148 ms QRS Dur : 098 ms QT Int : 290 ms P-R-T Axes : 057 025 -41 degrees QTc Int : 423 ms Sinus tachycardia Diffuse Nonspecific T wave abnormality Abnormal ECG No previous ECGs available Confirmed by Charlie Rod ([id number]) on 05/18/2020 8:55:55 AM Referred By: REFERRED SELF Confirmed By:Charlie Rod
--- NOTE | 2020-05-18 09:46 | Hospitalist Progress Note ---
Date of Service May 18, 2020 Assessment & Plan (1) Acute on chronic systolic CHF (congestive heart failure): 2-8 echo with EF 30-35% weight 158.4kg monitor strict ins and outs, continute daily weights give lasix 40mg IV once checking TSH appreciate cardiology help they are considering viral etiology vs sarcoid, HIV, iron overload. workup pending coreg started (2) ROSSY (acute kidney injury): 2-7 Cr 1.42, received lasix 2-8 Cr 1.54, cont to monitor while diuresing (3) Hepatic steatosis: likely related to poor diet A1c pending (4) Bilateral pleural effusion: (5) Pulmonary nodule: follow up as outpatient with PCP needs repeat imaging in 6months Admission and Anticipated Discharge Date Admission Date: May 17, 2020 Subjective He reports a history of nausea since March. He has been having chills, whereas in the past, he felt hot. Had been using albuterol for his sob, which seemed to help a bit. Patient reports currently having significant anxiety, nearly panicking. His dyspnea and orthopnea have improved since yesterday. Leg edema has improved as well. Reports his baseline weight is around 250 pounds, but is up to 350 currently. States he has never weighed more than 300 pounds. Eating well, making plenty of urine, no nausea or vomiting, no diarrhea. Review of Systems Constitutional: + weight gain; no fever, no chills, no fatigue, no weakness, no anorexia and no weight loss Ear, Nose, Mouth, Throat: no nasal congestion, no sore throat and no dysphagia Respiratory: + dyspnea; no cough Cardiovascular: no chest pain, no dyspnea on exertion, no orthopnea and no palpitations Gastrointestinal: no abdominal pain, no nausea, no vomiting, no hematemesis, no dysphagia, no constipation, no diarrhea/loose stools, no blood in stools and no melena Genitourinary: no dysuria and no hematuria Musculoskeletal: no back pain, no joint pain, no myalgia and no muscle weakness Integumentary: no rash, no lesions, no skin ulcer, no erythema, no dry skin and no pruritus Neurologic: no falls, no localized weakness, no generalized weakness, no numbness, no paresthesia, no tremor(s) and no headache(s) Psychiatric: + anxiety; no depression, no suicidal ideation and no homicidal ideation Endocrine: no cold intolerance and no heat intolerance Hematologic / Lymphatic: no easy bleeding and no easy bruising Physical Exam Constitutional: well developed, well nourished and + obese; no acute distress Eyes: PERRL, conjunctivae normal, anicteric sclerae ENMT: Mouth: oral mucous membranes not dry Respiratory: normal respiratory effort; no respiratory distress and no labored breathing Auscultation: lungs clear to auscultation bilaterally; no crackles, no rales, no rhonchi and no wheezes Cardiovascular: Rate/Rhythm: regular rate and regular rhythm Heart Sounds: no murmur and no cardiac rub Vessels: normal peripheral pulses and radial pulses present; no JVD Extremities: no edema Gastrointestinal (Abdomen): Inspection/Auscultation: abdomen normal to inspection and normal bowel sounds; abdomen not distended Percussion/Palpation: abdomen soft; abdomen nontender, no guarding, abdomen not rigid and no hepatosplenomegaly Musculoskeletal: Head/Neck/Chest: normocephalic and head atraumatic Spine: no cervical spinal tenderness, no cervical muscular tenderness, no thoracic spinal tenderness and no lumbar spinal tenderness Skin: no rashes, warm and dry Neurologic: CN's II-XI intact bilaterally and moves all extremities Motor/Sensory: no tremor and no sensory deficit Psychiatric: Orientation: alert, oriented to person, oriented to place and oriented to time Apperance: appropriately groomed; not disheveled Affect: euthymic affect, + anxious affect and + irritable affect; no tearful affect Genitourinary: no [place] catheter Results & Data Results & Data ([facility]) Vital Signs (Past 12 Hours) Vital Signs Temp Pulse Pulse Resp BP Pulse Ox 05/18/20 08:14 36.8 C 105 H 20 126/87 96 05/18/20 04:00 37 C 103 H 18 124/75 97 05/18/20 00:31 36.5 C 108 H 20 122/77 96 05/17/20 22:05 37.5 C 116 H 114 H 24 126/79 97 Laboratory Results Abnormal lab results 05/17/20 05/17/20 05/18/20 Range/Units 16:44 16:44 05:46 RBC 4.60 L 4.65 L (4.7-6.1) M/uL Hgb 11.8 L 11.8 L (14.0-18.0) g/dL Hct 36.6 L 37.2 L (42-52) % MCV 79.6 L (80-100) fL MCHC 31.7 L (32-36) g/dL RDW Coeff of [place] 14.6 H (11.5-14.5) % Neut # (Auto) 7.55 H (1.4-6.5) K/uL Lymph # (Auto) 0.89 L (1.2-3.4) K/uL Chloride 108 H (98-107) mmol/L Creatinine 1.42 H (0.6-1.4) mg/dl BUN/Creatinine Ratio 8.3 L (10-20) Glucose 105 H (70-99) mg/dl NT-Pro-B Natriuret Pep 1536 H (0-450) pg/ml 05/18/20 Range/Units 05:46 RBC (4.7-6.1) M/uL Hgb (14.0-18.0) g/dL Hct (42-52) % MCV (80-100) fL MCHC (32-36) g/dL RDW Coeff of [place] (11.5-14.5) % Neut # (Auto) (1.4-6.5) K/uL Lymph # (Auto) (1.2-3.4) K/uL Chloride (98-107) mmol/L Creatinine 1.54 H (0.6-1.4) mg/dl BUN/Creatinine Ratio 9.8 L (10-20) Glucose 144 H (70-99) mg/dl NT-Pro-B Natriuret Pep (0-450) pg/ml Medications Administered Current Inpatient Medications Acetaminophen (Acetaminophen 325 Mg Tab) 650 mg PO Q4H PRN PRN Reason: Pain or Fever Stop: 06/16/20 22:18 Last Admin: 05/17/20 23:18 Dose: 650 mg Documented by: Heparin Sodium (Porcine) (Heparin Sod 5,000 Unit/0.5 Ml Vial) 5,000 units SQ Q8 NERI Stop: 06/16/20 22:18 Last Admin: 05/18/20 05:57 Dose: 5,000 units Documented by: Ondansetron HCl (Ondansetron Inj 2 Mg/Ml 2 Ml Vial) 4 mg IV Q6H PRN PRN Reason: Nausea Stop: 06/16/20 22:18 Polyethylene Glycol (Polyethylene (Miralax) 17 Gm Pack) 17 gm PO DAILY PRN PRN Reason: Constipation Stop: 06/16/20 22:18 PG Care Time/CCT Total # of Minutes Spent Total Time Spent with Patient: Total time spent is greater than 50% in coordination of care (as documented) at patient's floor/unit and/or counseling patient: Coding Level of Care Code 85319 Subseq Hosp Care Lvl 3 Diagnoses Acute on chronic systolic CHF (congestive heart failure) I50.23 ROSSY (acute kidney injury) N17.9 Hepatic steatosis K76.0 Bilateral pleural effusion J90 Pulmonary nodule R91.1
--- NOTE | 2020-05-18 11:01 | Cardiology Consultation ---
Date of Consultation May 18, 2020 Assessment & Plan (1) Acute CHF (congestive heart failure): He presented in congestive heart failure with an elevated BNP, orthopnea and PND and dyspnea on exertion. He has diuresed well and feels much better although he has not been active. (2) Cardiomyopathy: He has a significant cardiomyopathy which was identified this admission. Based on symptoms it may have started somewhere around March 2020 although it is possible that is only when he became symptomatic. Around January 2020 however he was doing very heavy work and having no difficulty so I suspect it is recent. It is likely viral or idiopathic however we should rule out reversible causes including sarcoid, HIV, iron overload, etc. I will order those tests. We may also want to exclude coronary disease although that is unlikely given the global nature of the cardiomyopathy and lack of anginal symptoms, although he does have ST-T abnormalities. Troponin is also negative suggesting it is not an acute ischemic event. We also need to start him on medications which include beta-blockers and WILL/ARB/Entresto. I am going to start beta-blockade today but hold off on the other medications with his kidney function worsening. Hopefully that will improve. I would continue diuresis although he may not have a lot of excess fluid remaining (he does not have edema). (3) ROSSY (acute kidney injury): He had an elevated creatinine on presentation and that has worsened somewhat. I do not know if this represents an intrinsic problem with kidney function or if it is cardiorenal syndrome. I am going to avoid an WILL inhibitor at the moment. (4) HBP (high blood pressure): His blood pressure was quite elevated on presentation although he does not believe he has had a long-term problem with it. I do not know how regularly it has been evaluated however. The heart failure medications will likely help with his blood pressure. History of Present Illness Reason for Consultation: Cardiomyopathy Attending Physician: Akosua Eid MD History of Present Illness This is a 35-year-old male with a history of obesity who presents with recent onset of symptoms of congestive heart failure. His history goes back to around [place] or slightly before 2019, at that time he was feeling poorly with lack of energy but was not having orthopnea or PND or any significant shortness of breath. He did get a Covid test because he had lost some of his sensation of taste and smell but that was negative. He then continued to feel poorly and over the last several weeks has had progressive difficulty with exertion as well as orthopnea and PND. He has not noticed leg edema. 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 Now he is active but does not do as much heavy lifting. He has had no exertional chest discomfort, no palpitations, lightheadedness or dizziness. Evaluation here was notable for him being COVID-19 negative, his blood pressure initially was quite elevated as was his creatinine, his BNP was elevated and he appeared to be in congestive heart failure. He has been tachycardic since arrival, his electrocardiogram May 17, 2020 shows sinus tachycardia at [address]-T abnormalities. An echocardiogram done May 18, 2020 shows moderate left ventricular dilatation with significant left ventricular dysfunction ejection fraction felt to be 30 to 35% in a global manner. Left atrium is moderately dilated. Blood work includes a negative troponin on presentation, a cholesterol which is fairly good at 165 total cholesterol and an HDL of 30, and an elevated creatinine which was 1.42 on May 17 in the afternoon and 1.54 May 18 at 5:48 AM. Allergies Allergy/AdvReac Type Severity Reaction Status Date / Time banana Allergy Severe Anaphylaxis Verified 05/17/20 16:49 erythromycin base Allergy Severe Anaphylaxis Verified 05/17/20 16:49 Penicillins Allergy Severe Anaphylaxis Verified 05/17/20 16:49 shellfish derived Allergy Severe Anaphylaxis Verified 05/17/20 16:49 strawberry Allergy Severe Anaphylaxis Verified 05/17/20 16:49 chocolate flavor Allergy Intermediate Hives Verified 05/17/20 16:49 Home Medications Medication Instructions Recorded Confirmed Type albuterol sulfate [Ventolin HFA] 2 puff INHALATION DIRECTED PRN 05/17/20 05/17/20 History ascorbic acid (vitamin C) [Vitamin 500 mg PO DAILY 05/17/20 05/17/20 History C] Patient History Medical History Penicillin allergy Surgical History No pertinent past surgical history Social History Smoking Status: Never smoker Hx Alcohol Use: Yes Alcohol type: hard liquor Hx Substance Use: Yes Last Used Substance: Days (ago) Last Used Substance Other:: new years Preferred Language: Burkinan Communication Ability: Effective Beliefs That Will Affect Care: Buddhist Buddhist Beliefs: does not eat pork Current Living Situation: Family Current Living Situation Comment: girlfriend and children Other Information That Helps Us Care for You: No Feels Safe at Home: Yes Safety Concerns: Feels Safe At This Time Assistive Devices: Glasses Review of Systems Review of Systems: All systems reviewed & are unremarkable except as noted in HPI & below Physical Exam Physical Exam: Constitutional: Alert, cooperative and in no distress. He is obese. HEENT: Unremarkable Neck: No jugular venous distention, carotid pulses are normal and equal bilaterally without bruits. Pulmonary: Clear to auscultation bilaterally. Cardiac: Regular rapid rhythm with no murmur, gallop or rub. Abdomen: Soft, nontender with normal bowel sounds. Extremities: No edema. Distal pulses intact. Neurologic: No focal findings. Gait is steady. Skin: No rash, ecchymoses or petechiae. Results & Data ([facility]) Vital Signs (Past 12 Hours) Vital Signs Temp Pulse Resp BP Pulse Ox 05/18/20 08:14 36.8 C 105 H 20 126/87 96 05/18/20 04:00 37 C 103 H 18 124/75 97 05/18/20 00:31 36.5 C 108 H 20 122/77 96 Laboratory Results Cardiac Enzymes 05/17/20 05/18/20 Range/Units 16:44 05:46 Creatinine 1.42 H 1.54 H (0.6-1.4) mg/dl AST 17 (15-37) U/L Troponin I 0.024 (0-0.045) ng/ml Coagulation 05/17/20 Range/Units 16:44 PT 10.7 (9.0-12.0) Seconds APTT 26.0 (21.0-31.0) Seconds Lipids 05/18/20 Range/Units 05:46 Triglycerides 101 (0-150) mg/dl Cholesterol 165 (0-200) mg/dl HDL Cholesterol 30 mg/dl Cholesterol/HDL Ratio 6 CBC 05/17/20 05/18/20 Range/Units 16:44 05:46 WBC 8.34 8.68 (4.8-10.8) K/uL RBC 4.60 L 4.65 L (4.7-6.1) M/uL Hgb 11.8 L 11.8 L (14.0-18.0) g/dL Hct 36.6 L 37.2 L (42-52) % Plt Count 369 361 (130-400) K/uL Neut # (Auto) 6.23 7.55 H (1.4-6.5) K/uL Lymph # (Auto) 1.49 0.89 L (1.2-3.4) K/uL [place] # (Auto) 0.56 0.23 (0.11-0.59) K/uL Eos # (Auto) 0.04 0.00 (0-0.5) K/uL Baso # (Auto) 0.01 0.00 (0-0.2) K/uL Comprehensive Metabolic Panel 05/17/20 05/18/20 Range/Units 16:44 05:46 Sodium 142 142 (136-145) mmol/L Potassium 4.1 4.2 (3.5-5.1) mmol/L Chloride 108 H 105 (98-107) mmol/L Carbon Dioxide 27 30 (21-32) mmol/L BUN 12 15 (7-18) mg/dl Creatinine 1.42 H 1.54 H (0.6-1.4) mg/dl Glucose 105 H 144 H (70-99) mg/dl Calcium 9.2 9.2 (8.5-10.1) mg/dl AST 17 (15-37) U/L ALT 52 (12-78) U/L Alkaline Phosphatase 54 (45-117) U/L Total Protein 7.0 (6.4-8.2) gm/dl Albumin 3.4 (3.4-5.0) gm/dl Intake and Output 05/17/20 05/18/20 05/18/20 22:59 06:59 14:59 Intake Total 1000 / 1850 850 / 1850 Output Total 4050 / 4050 Balance 1000 / -2200 -3200 / -2200 Intake: IV 1000 / 1000 Nss 1000ML 1,000 ml @ 999 mls/ 1000 / 1000 hr IV .Q1H1M [facility] Rx#:[id number] Oral 850 / 850 Output: Urine 4050 / 4050 Other: # Unmeasured Voids 1 Weight 158.4 kg 158.4 kg Weight Measurement Method Standing Scale Standing Scale Diagnostic Findings Telemetry: Sinus rhythm, predominantly tachycardia at rate 100-110 on average PG Care Time/CCT Total # of Minutes Spent Total Time Spent with Patient: Total time spent is greater than 50% in coordination of care (as documented) at patient's floor/unit and/or counseling patient: Coding Level of Care Code 23519 Inpt Consult Level 4 Diagnoses Acute CHF (congestive heart failure) I50.21 Heart failure type: systolic Cardiomyopathy I42.0 Cardiomyopathy type: dilated ROSSY (acute kidney injury) N17.9 HBP (high blood pressure) I10 Hypertension type: essential hypertension (1) Acute CHF (congestive heart failure) Heart failure type: systolic Qualified Code(s): I50.21 - Acute systolic (leandra estive) heart failure (2) Cardiomyopathy Cardiomyopathy type: dilated Qualified Code(s): I42.0 - Dilated cardiomyopathy (3) HBP (high blood pressure) Hypertension type: essential hypertension Qualified Code(s): I10 - Essential (primary) hypertension
[2020-05-18] MEDS: carvediloL 12.5 MG TAB PO SCH ×2 (12:20→20:24)
[2020-05-18 12:22] LABS: Iron 18 mcg/dl (35-175); Total Iron Binding Capacity 387 mcg/dl (250-450)
[2020-05-18] MEDS: LORazepam 0.5 MG TAB PO PRN (20:24)
[2020-05-19] MEDS: HEPARIN SOD 5,000 UNIT/0.5 ML VIAL SQ SCH ×3 (05:47→21:26)
[2020-05-19 05:50] LABS: Estimated Average Glucose 131 mg/dl; Hemoglobin A1C 6.2 % (4.5-5.6)
[2020-05-19 06:57] LABS: Hematocrit (blood only) 35.4 % (42-52); Hemoglobin 11.6 g/dL (14.0-18.0); Mean Corpuscular Hemoglobin 26.1 pg (25-34); Mean Corpuscular Hgb Conc 32.8 g/dL (32-36); Mean Corpuscular Volume 79.6 fL (80-100); Mean Platelet Volume 10.4 fL (7.4-10.4); Platelet Count 408 K/uL (130-400); RDW Coefficient of Variation 14.7 % (11.5-14.5); RDW Standard Deviation 42.4 fL (36.4-46.3); Red Blood Count 4.45 M/uL (4.7-6.1); White Blood Count 13.05 K/uL (4.8-10.8)
[2020-05-19 07:24] LABS: BUN Creatinine Ratio 14.6 (10-20); Calcium 9.4 mg/dl (8.5-10.1); Creatinine Clr Calc Pharmacy 115.9 ml/min; Est GFR (African American) 72.5; Est GFR (Non-African American) 62.6; Magnesium 2.6 mg/dl (1.8-2.4)
[2020-05-19] MEDS: carvediloL 12.5 MG TAB PO SCH (08:06)
--- NOTE | 2020-05-19 08:40 | Hospitalist Progress Note ---
Date of Service May 19, 2020 Assessment & Plan (1) Acute systolic CHF (congestive heart failure): 2-8 echo with EF 30-35% weight 158.4kg monitor strict ins and outs, continute daily weights give lasix 40mg IV once appreciate cardiology help they are considering viral etiology vs sarcoid, HIV, iron overload workup pending coreg started 2-9 weight 156.6kg TSH, T3 and T4 are normal HIV negative (2) Tachycardia: TSH is low normal Free T3 and Free T4 levels are normal (3) ROSSY (acute kidney injury): 2-7 Cr 1.42, received lasix 2-8 Cr 1.54, cont to monitor while diuresing 2-9 Cr 1.43, stable (4) Prediabetes: encourage weight loss (5) Anxiety: 2-9 received ativan last night will continue to use as needed (6) Hepatic steatosis: likely related to poor diet A1c 6.2% which is prediabetes (7) Pulmonary nodule: follow up as outpatient with PCP needs repeat imaging in 6months Admission and Anticipated Discharge Date Admission Date: May 17, 2020 Subjective Patient reports feeling lack of energy, feeling winded. He also reports dry mouth. Last night he took ativan prior to falling asleep -- it helped his anxiety and sleeping. Reports that he does not drink alcohol and has not ever gone through withdrawal Eating well, no trouble with bowel or bladder, ambulating without assistance in hospital room Review of Systems Constitutional: + weight gain; no fever, no chills, no fatigue, no weakness, no anorexia and no weight loss Ear, Nose, Mouth, Throat: no nasal congestion, no sore throat and no dysphagia Respiratory: + dyspnea; no cough Cardiovascular: no chest pain, no dyspnea on exertion, no orthopnea and no palpitations Gastrointestinal: no abdominal pain, no nausea, no vomiting, no hematemesis, no dysphagia, no constipation, no diarrhea/loose stools, no blood in stools and no melena Genitourinary: no dysuria and no hematuria Musculoskeletal: no back pain, no joint pain, no myalgia and no muscle weakness Integumentary: no rash, no lesions, no skin ulcer, no erythema, no dry skin and no pruritus Neurologic: no falls, no localized weakness, no generalized weakness, no numbness, no paresthesia, no tremor(s) and no headache(s) Psychiatric: + anxiety; no depression, no suicidal ideation and no homicidal ideation Endocrine: no cold intolerance and no heat intolerance Hematologic / Lymphatic: no easy bleeding and no easy bruising Physical Exam Constitutional: well developed, well nourished and + obese; no acute distress Eyes: PERRL, conjunctivae normal, anicteric sclerae ENMT: Mouth: oral mucous membranes not dry Respiratory: normal respiratory effort; no respiratory distress and no labored breathing Auscultation: lungs clear to auscultation bilaterally; no crackles, no rales, no rhonchi and no wheezes Cardiovascular: Rate/Rhythm: regular rate and regular rhythm Heart Sounds: no murmur and no cardiac rub Vessels: normal peripheral pulses and radial pulses present; no JVD Extremities: no edema Gastrointestinal (Abdomen): Inspection/Auscultation: abdomen normal to inspection and normal bowel sounds; abdomen not distended Percussion/Palpation: abdomen soft; abdomen nontender, no guarding, abdomen not rigid and no hepatosplenomegaly Musculoskeletal: Head/Neck/Chest: normocephalic and head atraumatic Spine: no cervical spinal tenderness, no cervical muscular tenderness, no thoracic spinal tenderness and no lumbar spinal tenderness Skin: no rashes, warm and dry Neurologic: CN's II-XI intact bilaterally and moves all extremities Motor/Sensory: no tremor and no sensory deficit Psychiatric: Orientation: alert, oriented to person, oriented to place and oriented to time Apperance: appropriately groomed; not disheveled Affect: euthymic affect, + anxious affect and + irritable affect; no tearful affect Results & Data Results & Data ([facility]) Vital Signs (Past 12 Hours) Vital Signs Temp Pulse Pulse Resp BP BP Pulse Ox 05/19/20 08:12 36.4 C L 115 H 18 125/79 95 05/19/20 03:57 36.9 C 97 H 119/87 97 05/19/20 00:00 100 H 05/18/20 23:56 36.5 C 94 H 18 114/75 97 Laboratory Results Abnormal lab results 05/18/20 05/19/20 05/19/20 Range/Units 05:46 06:21 06:21 WBC 13.05 H (4.8-10.8) K/uL RBC 4.45 L (4.7-6.1) M/uL Hgb 11.6 L (14.0-18.0) g/dL Hct 35.4 L (42-52) % MCV 79.6 L (80-100) fL RDW Coeff of [place] 14.7 H (11.5-14.5) % Plt Count 408 H (130-400) K/uL Chloride 109 H (98-107) mmol/L BUN 21 H (7-18) mg/dl Creatinine 1.43 H (0.6-1.4) mg/dl Glucose 128 H (70-99) mg/dl Hemoglobin A1c 6.2 H (4.5-5.6) % Magnesium 2.6 H (1.8-2.4) mg/dl Medications Administered Current Inpatient Medications Acetaminophen (Acetaminophen 325 Mg Tab) 650 mg PO Q4H PRN PRN Reason: Pain or Fever Stop: 06/16/20 22:18 Last Admin: 05/17/20 23:18 Dose: 650 mg Documented by: Carvedilol (Carvedilol 25 Mg Tab) 25 mg PO BID [facility] Stop: 06/18/20 20:59 Heparin Sodium (Porcine) (Heparin Sod 5,000 Unit/0.5 Ml Vial) 5,000 units SQ Q8 NERI Stop: 06/16/20 22:18 Last Admin: 05/19/20 05:47 Dose: Not Given Documented by: Lorazepam (Lorazepam 0.5 Mg Tab) 0.5 mg PO DAILY PRN PRN Reason: Anxiety Stop: 06/17/20 15:48 Last Admin: 05/18/20 20:24 Dose: 0.5 mg Documented by: Ondansetron HCl (Ondansetron Inj 2 Mg/Ml 2 Ml Vial) 4 mg IV Q6H PRN PRN Reason: Nausea Stop: 06/16/20 22:18 Polyethylene Glycol (Polyethylene (Miralax) 17 Gm Pack) 17 gm PO DAILY PRN PRN Reason: Constipation Stop: 06/16/20 22:18 PG Care Time/CCT Total # of Minutes Spent Total Time Spent with Patient: Total time spent is greater than 50% in coordination of care (as documented) at patient's floor/unit and/or counseling patient: Coding Level of Care Code 89152 Subseq Hosp Care Lvl 2 Diagnoses Acute systolic CHF (congestive heart failure) I50.21 Tachycardia R00.0 ROSSY (acute kidney injury) N17.9 Prediabetes R73.03 Anxiety F41.9 Hepatic steatosis K76.0 Pulmonary nodule R91.1
[2020-05-19] MEDS ORDERED: carvediloL 12.5 MG TAB PO ONE (09:14)
--- NOTE | 2020-05-19 09:17 | Cardiology Progress Note ---
Date of Service May 19, 2020 Assessment & Plan (1) Acute CHF (congestive heart failure): He presented in congestive heart failure with an elevated BNP, orthopnea and PND and dyspnea on exertion. He has diuresed well and feels much better although he still has symptoms compatible with orthopnea and PND. I would continue to diurese. (2) Cardiomyopathy: He has a significant cardiomyopathy which was identified this admission. Based on symptoms it may have started somewhere around March 2020 although it is possible that is only when he became symptomatic. Around January 2020 however he was doing very heavy work and having no difficulty so I suspect it is recent. It is likely viral or idiopathic however we should rule out reversible causes including sarcoid, HIV, iron overload, etc. the protein electrophoresis is pending, he is somewhat anemic and his iron level is low which may need to be evaluated but that is not a cause of cardiomyopathy. I am going to order an HIV test, he has been frequently tested evidently in [place] and he does not mind us doing another test. We may also want to exclude coronary disease although that is unlikely given the global nature of the cardiomyopathy and lack of anginal symptoms, although he does have ST-T abnormalities. Troponin is negative suggesting it is not an acute ischemic event. His kidney function is improved so we could consider catheterization but we do not need to make that determination as yet. We also need to titrate his Beta-blockers and consider adding WILL/ARB/Entresto. I am going to increase his carvedilol today but hold off on the other medications for now, with his kidney function improved today we may be able to start them soon. I would continue diuresis although he may not have a lot of excess fluid remaining (he does not have edema). (3) ROSSY (acute kidney injury): He had an elevated creatinine on presentation and that had worsened somewhat yesterday but is little better today. I do not know if this represents an intrinsic problem with kidney function or if it is cardiorenal syndrome. I am going to avoid an WILL inhibitor at the moment but would continue diuresis. (4) HBP (high blood pressure): His blood pressure was quite elevated on presentation although he does not believe he has had a long-term problem with it. I do not know how regularly it has been evaluated however. The heart failure medications will likely help with his blood pressure, he has tolerated beta-blockade well so far without hypotension. Admission and Anticipated Discharge Date Admission Date: May 17, 2020 Subjective He is feeling better although he still has respiratory symptoms when he lays down to sleep, even with the head of the bed partly up. He has some shortness of breath and coughing. No chest discomfort. No palpitations or sensation of increased heart rate. Physical Exam Physical Exam: Constitutional: Alert, cooperative and in no distress. He is obese. HEENT: Unremarkable Neck: No jugular venous distention, carotid pulses are normal and equal bilaterally without bruits. Pulmonary: Clear to auscultation bilaterally. Cardiac: Regular rapid rhythm with no murmur, gallop or rub. Abdomen: Soft, nontender with normal bowel sounds. Extremities: No edema. Distal pulses intact. Neurologic: No focal findings. Gait is steady. Skin: No rash, ecchymoses or petechiae. Results & Data ([facility]) Vital Signs (Past 12 Hours) Vital Signs Temp Pulse Pulse Resp BP BP Pulse Ox 05/19/20 08:12 36.4 C L 115 H 18 125/79 95 05/19/20 03:57 36.9 C 97 H 119/87 97 05/19/20 00:00 100 H 05/18/20 23:56 36.5 C 94 H 18 114/75 97 Laboratory Results CBC 05/19/20 Range/Units 06:21 WBC 13.05 H (4.8-10.8) K/uL RBC 4.45 L (4.7-6.1) M/uL Hgb 11.6 L (14.0-18.0) g/dL Hct 35.4 L (42-52) % Plt Count 408 H (130-400) K/uL Comprehensive Metabolic Panel 05/19/20 Range/Units 06:21 Sodium 142 (136-145) mmol/L Potassium 4.0 (3.5-5.1) mmol/L Chloride 109 H (98-107) mmol/L Carbon Dioxide 28 (21-32) mmol/L BUN 21 H (7-18) mg/dl Creatinine 1.43 H (0.6-1.4) mg/dl Glucose 128 H (70-99) mg/dl Calcium 9.4 (8.5-10.1) mg/dl Intake and Output 05/18/20 05/19/20 05/19/20 22:59 06:59 14:59 Intake Total 2049 820 / 3870 Output Total 800 / 2800 Balance 2049 Intake: Oral 2049 820 / 3870 Output: Urine 800 / 2800 Other: # Unmeasured Voids 5 Weight 156.6 kg Diagnostic Findings Telemetry: Sinus rhythm and low-grade sinus tachycardia, heart rate slightly improved from yesterday PG Care Time/CCT Total # of Minutes Spent Total Time Spent with Patient: Total time spent is greater than 50% in coordination of care (as documented) at patient's floor/unit and/or counseling patient: Coding Level of Care Code 89249 Subseq Hosp Care Lvl 3 Diagnoses Acute CHF (congestive heart failure) I50.21 Heart failure type: systolic Cardiomyopathy I42.0 Cardiomyopathy type: dilated ROSSY (acute kidney injury) N17.9 HBP (high blood pressure) I10 Hypertension type: essential hypertension (1) Acute CHF (congestive heart failure) Heart failure type: systolic Qualified Code(s): I50.21 - Acute systolic (congestive) heart failure (2) HBP (high blood pressure) Hypertension type: essential hypertension Qualified Code(s): I10 - Essential (primary) hypertension (3) Cardiomyopathy Cardiomyopathy type: dilated Qualified Code(s): I42.0 - Dilated cardiomyopathy
[2020-05-19] MEDS: FUROSEMIDE 20 MG in SYRINGE 0 ML IV SCH (17:36)
[2020-05-19] MEDS: carvediloL 25 MG TAB PO SCH (20:15)
[2020-05-20] MEDS ORDERED: FAMOTIDINE 20 MG TAB PO ONE (00:37)
[2020-05-20 01:14] LABS: BUN Creatinine Ratio 16.4 (10-20); Calcium 8.3 mg/dl (8.5-10.1); Creatinine Clr Calc Pharmacy 112.7 ml/min; Est GFR (African American) 70.1; Est GFR (Non-African American) 60.5; Magnesium 2.5 mg/dl (1.8-2.4); Potassium 3.7 mmol/L (3.5-5.1)
[2020-05-20 01:20] LABS: Phosphorus 4.9 mg/dl (2.5-4.9); Troponin I 0.021 ng/ml (0-0.045)
--- NOTE | 2020-05-20 01:27 | Communication Note ---
Date of Service: May 20, 2020 Called to bedside for hypotension and sensation of epigastric dull pain, similar but significantly less than when he came in. EKG performed which shows findings similar to those noted on admission EKG. Troponin stable at 0.021 (admission troponin 0.024), BMP normal. On further discussion described bloated sensation like he was going to burp. Provided one time dosing of Pepcid. Advised some PO fluids given hypotension to 80s systolic. Suspect low BP due to Lasix given around 6PM as well as increase in Coreg dose per day team this evening. Able to reproduce pain on palpation. Resident Activity Tracking Resident Involvement: Resident Care Provided Care Provided: Adult Hospital Medicine
[2020-05-20] MEDS ORDERED: POTASSIUM CHLORIDE 10 MEQ TABCR PO STA (01:30)
[2020-05-20] MEDS: HEPARIN SOD 5,000 UNIT/0.5 ML VIAL SQ SCH ×3 (05:49→21:13)
[2020-05-20 06:03] LABS: Hematocrit (blood only) 35.2 % (42-52); Hemoglobin 10.9 g/dL (14.0-18.0); Mean Corpuscular Hemoglobin 25.1 pg (25-34); Mean Corpuscular Volume 81.1 fL (80-100); Mean Platelet Volume 10.1 fL (7.4-10.4); Platelet Count 371 K/uL (130-400); RDW Coefficient of Variation 14.8 % (11.5-14.5); RDW Standard Deviation 43.9 fL (36.4-46.3); Red Blood Count 4.34 M/uL (4.7-6.1); White Blood Count 7.66 K/uL (4.8-10.8)
[2020-05-20 06:38] LABS: BUN Creatinine Ratio 15.3 (10-20); Calcium 8.5 mg/dl (8.5-10.1); Creatinine Clr Calc Pharmacy 111.2 ml/min; Est GFR (African American) 68.4; Magnesium 2.6 mg/dl (1.8-2.4); Phosphorus 4.7 mg/dl (2.5-4.9); Potassium 3.7 mmol/L (3.5-5.1)
[2020-05-20] MEDS ORDERED: FUROSEMIDE 20 MG TAB PO SCH (09:00)
[2020-05-20] MEDS: carvediloL 25 MG TAB PO SCH ×2 (09:05→21:12)
--- NOTE | 2020-05-20 09:20 | Hospitalist Progress Note ---
Date of Service May 20, 2020 Assessment & Plan (1) Acute systolic CHF (congestive heart failure): 2-8 echo with EF 30-35% weight 158.4kg monitor strict ins and outs, continute daily weights give lasix 40mg IV once appreciate cardiology help they are considering viral etiology vs sarcoid, HIV, iron overload workup pending coreg started 2-9 weight 156.6kg TSH, T3 and T4 are normal HIV negative 2-10 weight 158.4kg, appears euvolemic likely to discharge tomorrow (2) Tachycardia: TSH is low normal Free T3 and Free T4 levels are normal 2-10 tachycardia has resolved (3) ROSSY (acute kidney injury): 2-7 Cr 1.42, received lasix 2-8 Cr 1.54, cont to monitor while diuresing 2-9 Cr 1.43, stable 2-10 consult nephrology for evaluation and follow up recommendations (4) Prediabetes: encourage weight loss (5) Anxiety: 2-9 received ativan last night will continue to use as needed (6) Hepatic steatosis: likely related to poor diet A1c 6.2% which is prediabetes (7) Pulmonary nodule: follow up as outpatient with PCP needs repeat imaging in 6months Admission and Anticipated Discharge Date Admission Date: May 17, 2020 Subjective Patient reports feeling fatigued, lack of energy. Denies shortness of breath, denies chest pain. No palpitations Eating well No difficulty with bowel or bladder Ambulating within his room His mouth feels dry, "like sandpaper" Review of Systems Constitutional: + fatigue; no fever, no chills, no weakness, no anorexia, no weight loss and no weight gain Ear, Nose, Mouth, Throat: + dry mouth; no nasal congestion, no sore throat and no dysphagia Respiratory: no cough and no dyspnea Cardiovascular: no chest pain, no dyspnea on exertion, no orthopnea and no palpitations Gastrointestinal: no abdominal pain, no nausea, no vomiting, no hematemesis, no dysphagia, no constipation, no diarrhea/loose stools, no blood in stools and no melena Genitourinary: no dysuria and no hematuria Musculoskeletal: no back pain, no joint pain, no myalgia and no muscle weakness Integumentary: no rash, no lesions, no skin ulcer, no erythema, no dry skin and no pruritus Neurologic: no falls, no localized weakness, no generalized weakness, no numbness, no paresthesia, no tremor(s) and no headache(s) Psychiatric: no depression, no suicidal ideation, no homicidal ideation and no anxiety Endocrine: no cold intolerance and no heat intolerance Hematologic / Lymphatic: no easy bleeding and no easy bruising Physical Exam Constitutional: well developed, well nourished and + obese; no acute distress Eyes: PERRL, conjunctivae normal, anicteric sclerae ENMT: Mouth: oral mucous membranes not dry Respiratory: normal respiratory effort; no respiratory distress and no labored breathing Auscultation: lungs clear to auscultation bilaterally; no crackles, no rales, no rhonchi and no wheezes Cardiovascular: Rate/Rhythm: regular rate and regular rhythm Heart Sounds: no murmur and no cardiac rub Vessels: normal peripheral pulses and radial pulses present; no JVD Extremities: no edema Gastrointestinal (Abdomen): Inspection/Auscultation: abdomen normal to inspection and normal bowel sounds; abdomen not distended Percussion/Palpation: abdomen soft; abdomen nontender, no guarding, abdomen not rigid and no hepatosplenomegaly Musculoskeletal: Head/Neck/Chest: normocephalic and head atraumatic Spine: no cervical spinal tenderness, no cervical muscular tenderness, no thoracic spinal tenderness and no lumbar spinal tenderness Skin: no rashes, warm and dry Neurologic: CN's II-XI intact bilaterally and moves all extremities Motor/Sensory: no tremor and no sensory deficit Psychiatric: Orientation: alert, oriented to person, oriented to place and oriented to time Apperance: appropriately groomed; not disheveled Affect: euthymic affect, + anxious affect and + irritable affect; no tearful affect Results & Data Results & Data ([facility]) Vital Signs (Past 12 Hours) Vital Signs Temp Pulse Pulse Resp BP Pulse Ox 05/20/20 04:46 36.6 C 89 18 90/65 L 98 05/20/20 00:10 36.5 C 88 16 86/56 L 97 05/19/20 23:03 89 Laboratory Results Abnormal lab results 05/20/20 05/20/20 05/20/20 Range/Units 00:39 05:46 05:46 RBC 4.34 L (4.7-6.1) M/uL Hgb 10.9 L (14.0-18.0) g/dL Hct 35.2 L (42-52) % MCHC 31.0 L (32-36) g/dL RDW Coeff of [place] 14.8 H (11.5-14.5) % BUN 24 H 23 H (7-18) mg/dl Creatinine 1.47 H 1.50 H (0.6-1.4) mg/dl Glucose 136 H 113 H (70-99) mg/dl Calcium 8.3 L (8.5-10.1) mg/dl Magnesium 2.5 H 2.6 H (1.8-2.4) mg/dl Medications Administered Current Inpatient Medications Acetaminophen (Acetaminophen 325 Mg Tab) 650 mg PO Q4H PRN PRN Reason: Pain or Fever Stop: 06/16/20 22:18 Last Admin: 05/17/20 23:18 Dose: 650 mg Documented by: Carvedilol (Carvedilol 25 Mg Tab) 25 mg PO BID [facility] Stop: 06/18/20 20:59 Last Admin: 05/20/20 09:05 Dose: 25 mg Documented by: Heparin Sodium (Porcine) (Heparin Sod 5,000 Unit/0.5 Ml Vial) 5,000 units SQ Q8 NERI Stop: 06/16/20 22:18 Last Admin: 05/20/20 05:49 Dose: Not Given Documented by: Furosemide 20 mg/ Syringe 2 mls @ 4 mls/min IV DAILY NERI Stop: 06/18/20 17:14 Last Admin: 05/19/20 17:36 Dose: 4 mls/min Documented by: Lorazepam (Lorazepam 0.5 Mg Tab) 0.5 mg PO DAILY PRN PRN Reason: Anxiety Stop: 06/17/20 15:48 Last Admin: 05/18/20 20:24 Dose: 0.5 mg Documented by: Ondansetron HCl (Ondansetron Inj 2 Mg/Ml 2 Ml Vial) 4 mg IV Q6H PRN PRN Reason: Nausea Stop: 06/16/20 22:18 Polyethylene Glycol (Polyethylene (Miralax) 17 Gm Pack) 17 gm PO DAILY PRN PRN Reason: Constipation Stop: 06/16/20 22:18 PG Care Time/CCT Total # of Minutes Spent Total Time Spent with Patient: Total time spent is greater than 50% in coordination of care (as documented) at patient's floor/unit and/or counseling patient: Coding Level of Care Code 10959 Subseq Hosp Care Lvl 2 Diagnoses Acute systolic CHF (congestive heart failure) I50.21 Tachycardia R00.0 ROSSY (acute kidney injury) N17.9 Prediabetes R73.03 Anxiety F41.9 Hepatic steatosis K76.0 Pulmonary nodule R91.1
[2020-05-20] MEDS: FUROSEMIDE 20 MG in SYRINGE 0 ML IV SCH (09:44)
--- NOTE | 2020-05-20 10:45 | Cardiology Progress Note ---
Date of Service May 20, 2020 Assessment & Plan (1) Acute CHF (congestive heart failure): He presented in congestive heart failure with an elevated BNP, orthopnea and PND and dyspnea on exertion. He was diuresed for several days and felt much better although he still had symptoms compatible with orthopnea and PND. Today his weight is up significantly and he drank a tremendous amount of fluids over the past 24 hours. We need to continue to diurese, I am placing him on a fluid restriction. I discussed this with him and hopefully he will follow it although he tells me he is drinking fluids because of a dry mouth. (2) Cardiomyopathy: He has a significant cardiomyopathy which was identified this admission. Based on symptoms it may have started somewhere around March 2020 although it is possible that is only when he became symptomatic. Around January 2020 however he was doing very heavy work and having no difficulty so I suspect it is recent. It is likely viral or idiopathic however we should rule out reversible causes including sarcoid, HIV, iron overload, etc. the protein electrophoresis is pending, he is somewhat anemic and his iron level is low which may need to be evaluated but that is not a cause of cardiomyopathy. His HIV test was negative. We may also want to exclude coronary disease although that is unlikely given the global nature of the cardiomyopathy and lack of anginal symptoms, although he does have ST-T abnormalities. Troponin is negative suggesting it is not an acute ischemic event. His kidney function is not normal but not bad enough so we could consider catheterization but we do not need to make that determination as yet. We also need to titrate his Beta-blockers over time and consider adding WILL/ARB/Entresto. He has responded to the current dose of carvedilol with a decrease in heart rate and his blood pressure is good. I am going to maintain his carvedilol at the current dose and hold off on the other medications for now. If his kidney function improves we may be able to start them soon. I would continue diuresis although he may not have a lot of excess fluid (he does not have edema). (3) ROSSY (acute kidney injury): He had an elevated creatinine on presentation and that has fluctuated somewhat since admission but all around the same level which is slightly increased. I do not know if this represents an intrinsic problem with kidney function or if it is cardiorenal syndrome, it may be worth trying to sort that out while he is here. I am going to avoid an WILL inhibitor at the moment but would continue diuresis. With diuresis his kidney function may improve which would suggest that he does not have a significant intrinsic kidney problem. (4) HBP (high blood pressure): His blood pressure was quite elevated on presentation although he does not believe he has had a long-term problem with it. I do not know how regularly it has been evaluated however. The heart failure medications will likely help with his blood pressure, he has tolerated beta-blockade well so far with mild hypotension but no symptoms related to it. Admission and Anticipated Discharge Date Admission Date: May 17, 2020 Subjective He is not feeling very well today, he had some nausea and he feels lethargic. He was lying in bed at the time my evaluation, he kept his eyes closed during my entire visit. Physical Exam Physical Exam: Constitutional: Alert, cooperative and in no distress. He is obese. HEENT: Unremarkable Neck: No jugular venous distention, carotid pulses are normal and equal bilaterally without bruits. Pulmonary: Clear to auscultation bilaterally. Cardiac: Regular rapid rhythm with no murmur, gallop or rub. Abdomen: Soft, nontender with normal bowel sounds. Extremities: No edema. Distal pulses intact. Neurologic: No focal findings. Gait is steady. Skin: No rash, ecchymoses or petechiae. Results & Data ([facility]) Vital Signs (Past 12 Hours) Vital Signs Temp Pulse Pulse Resp BP Pulse Ox 05/20/20 07:00 36.8 C 72 16 110/63 98 05/20/20 04:46 36.6 C 89 18 90/65 L 98 05/20/20 00:10 36.5 C 88 16 86/56 L 97 05/19/20 23:03 89 Laboratory Results Cardiac Enzymes 05/20/20 Range/Units 00:39 Troponin I 0.021 (0-0.045) ng/ml CBC 05/20/20 Range/Units 05:46 WBC 7.66 (4.8-10.8) K/uL RBC 4.34 L (4.7-6.1) M/uL Hgb 10.9 L (14.0-18.0) g/dL Hct 35.2 L (42-52) % Plt Count 371 (130-400) K/uL Comprehensive Metabolic Panel 05/20/20 05/20/20 Range/Units 00:39 05:46 Sodium 142 141 (136-145) mmol/L Potassium 3.7 3.7 (3.5-5.1) mmol/L Chloride 107 105 (98-107) mmol/L Carbon Dioxide 31 31 (21-32) mmol/L BUN 24 H 23 H (7-18) mg/dl Creatinine 1.47 H 1.50 H (0.6-1.4) mg/dl Glucose 136 H 113 H (70-99) mg/dl Calcium 8.3 L 8.5 (8.5-10.1) mg/dl Intake and Output 05/19/20 05/20/20 05/20/20 22:59 06:59 14:59 Intake Total 360 / 360 Balance 360 / 360 Intake: Oral 360 / 360 Other: Weight 158.4 kg Diagnostic Findings Telemetry: Sinus rhythm, heart rate generally in the 80s. No significant arrhythmia. PG Care Time/CCT Total # of Minutes Spent Total Time Spent with Patient: Total time spent is greater than 50% in coordination of care (as documented) at patient's floor/unit and/or counseling patient: Coding Level of Care Code 52255 Subseq Hosp Care Lvl 3 Diagnoses Acute CHF (congestive heart failure) I50.21 Heart failure type: systolic Cardiomyopathy I42.0 Cardiomyopathy type: dilated ROSSY (acute kidney injury) N17.9 HBP (high blood pressure) I10 Hypertension type: essential hypertension (1) Acute CHF (congestive heart failure) Heart failure type: systolic Qualified Code(s): I50.21 - Acute systolic (congestive) heart failure (2) Cardiomyopathy Cardiomyopathy type: dilated Qualified Code(s): I42.0 - Dilated cardiomyopathy (3) HBP (high blood pressure) Hypertension type: essential hypertension Qualified Code(s): I10 - Essential (primary) hypertension
--- NOTE | 2020-05-20 12:34 | Electrocardiogram Report ---
Test Reason : Blood Pressure : / mmHG Vent. Rate : 087 BPM Atrial Rate : 087 BPM P-R Int : 160 ms QRS Dur : 104 ms QT Int : 406 ms P-R-T Axes : 063 048 258 degrees QTc Int : 488 ms Normal sinus rhythm Possible Left atrial enlargement Incomplete right bundle branch block Prolonged QT Abnormal ECG When compared with ECG of 17-MAY-2020 16:20, Inverted T waves have replaced nonspecific T wave abnormality in Anterior leads Confirmed by Aamir Saucedo ([id number]) on 05/20/2020 12:34:09 PM Referred By: REFERRED SELF Confirmed By:Aamir Saucedo
[2020-05-20] MEDS ORDERED: ALUMINUM/MAGNESIUM/SIMETH (MAALOX MAX) 30 ML UDC PO PRN (17:21)
[2020-05-21] MEDS ORDERED: SODIUM CHLORIDE 0.9% 1000ML 500 ML IV ONE (00:22)
--- NOTE | 2020-05-21 00:39 | Communication Note ---
Date of Service: May 21, 2020 Made aware of patient having BP 70s/50s with complaints of nausea and dizziness. Of note, patient's Coreg dosing has been increased the last several days. He also received 20mg IV Lasix earlier today. This same phenomenon happened to the patient last night, but resolved on its own with some PO fluids. Today I did order one time 500mL bolus of fluid, with repeat BP following 100/50. Also decreased Coreg dose to 12.5mg with hold parameters, for Cardiology to review in AM. Suspect low BP due to combined Coreg and Lasix dosing. Resident Activity Tracking Resident Involvement: Resident Care Provided Care Provided: Adult Hospital Medicine
[2020-05-21] MEDS: HEPARIN SOD 5,000 UNIT/0.5 ML VIAL SQ SCH ×3 (05:00→21:48)
[2020-05-21 06:34] LABS: Mean Corpuscular Hemoglobin 25.4 pg (25-34); Mean Corpuscular Hgb Conc 31.4 g/dL (32-36); Mean Corpuscular Volume 80.8 fL (80-100); Mean Platelet Volume 10.5 fL (7.4-10.4); Platelet Count 420 K/uL (130-400); RDW Coefficient of Variation 14.8 % (11.5-14.5); RDW Standard Deviation 43.8 fL (36.4-46.3); Red Blood Count 4.33 M/uL (4.7-6.1); White Blood Count 7.12 K/uL (4.8-10.8)
[2020-05-21 07:06] LABS: BUN Creatinine Ratio 13.3 (10-20); Calcium 8.7 mg/dl (8.5-10.1); Creatinine Clr Calc Pharmacy 115.8 ml/min; Est GFR (African American) 71.9; Magnesium 2.7 mg/dl (1.8-2.4); Potassium 3.8 mmol/L (3.5-5.1)
[2020-05-21 07:10] LABS: Phosphorus 3.6 mg/dl (2.5-4.9)
[2020-05-21] MEDS ORDERED: carvediloL 12.5 MG TAB PO SCH (09:00)
[2020-05-21] MEDS: FUROSEMIDE 20 MG in SYRINGE 0 ML IV SCH (10:04)
--- NOTE | 2020-05-21 10:22 | Cardiology Progress Note ---
Date of Service May 21, 2020 Assessment & Plan (1) Acute CHF (congestive heart failure): He presented in congestive heart failure with an elevated BNP, orthopnea and PND and dyspnea on exertion. He was diuresed for several days and felt much better although he still had symptoms compatible with orthopnea and PND. He has been having trouble handling a fluid restriction, he also has been hypotensive and may not be significantly fluid overloaded. We may be able to maintain his weight where it currently is for the time being. (2) Cardiomyopathy: He has a significant cardiomyopathy which was identified this admission. Based on symptoms it may have started somewhere around March 2020 although it is possible that is only when he became symptomatic. Around January 2020 however he was doing very heavy work and having no difficulty so I suspect it is recent. It is likely viral or idiopathic however we should rule out reversible causes including sarcoid, HIV, iron overload, etc. the protein electrophoresis is pending, he is somewhat anemic and his iron level is low which may need to be evaluated but that is not a cause of cardiomyopathy. His HIV test was negative. We may also want to exclude coronary disease although that is unlikely given the global nature of the cardiomyopathy and lack of anginal symptoms, although he does have ST-T abnormalities. Troponin is negative suggesting it is not an acute ischemic event. His kidney function is not normal but not bad enough so we could consider catheterization but we do not need to make that determination as yet. We also need to titrate his Beta-blockers over time and consider adding WILL/ARB/Entresto. He has responded to the current dose of carvedilol with a decrease in heart rate but his blood pressure is low at times and we have been forced to cut back the carvedilol. Additionally he is having significant side effects which he attributes to carvedilol. I would like to continue carvedilol, perhaps at a lower dose (6.25 mg twice a day) and add low-dose ARB therapy. Perhaps he will tolerate this better with fewer side effects. (3) ROSSY (acute kidney injury): He had an elevated creatinine on presentation and that has fluctuated somewhat since admission but all around the same level which is slightly increased. I do not know if this represents an intrinsic problem with kidney function or if it is cardiorenal syndrome, it may be worth trying to sort that out while he is here. Appreciate nephrology input, we will start low-dose ARB therapy. (4) HBP (high blood pressure): His blood pressure was quite elevated on presentation although he does not believe he has had a long-term problem with it. I do not know how regularly it has been evaluated however. His blood pressure normalized and then became quite low for reasons which not entirely clear, he was on moderate dose beta-bryon and perhaps he is sensitive to it. Hopefully he can tolerate heart failure medi cations over the long run. Admission and Anticipated Discharge Date Admission Date: May 17, 2020 Subjective Today he is complaining of a lot of side effects from his medications, specifically the carvedilol. He is having headache, shakes, chills, GI upset, and he has been hypotensive. He refused to take it this morning after it was reduced from 25 mg twice a day to 12-1/2 mg twice a day. He does not seem to be having much orthopnea (which he was having on admission). Physical Exam Physical Exam: Constitutional: Alert, cooperative and in no distress. He is obese. HEENT: Unremarkable Neck: No jugular venous distention, carotid pulses are normal and equal bilaterally without bruits. Pulmonary: Clear to auscultation bilaterally. Cardiac: Regular rapid rhythm with no murmur, gallop or rub. Abdomen: Soft, nontender with normal bowel sounds. Extremities: No edema. Distal pulses intact. Neurologic: No focal findings. Gait is steady. Skin: No rash, ecchymoses or petechiae. Results & Data ([facility]) Vital Signs (Past 12 Hours) Vital Signs Temp Pulse Pulse Resp BP BP Pulse Ox 05/21/20 09:23 36.4 C L 93 H 20 112/73 96 05/21/20 08:00 94 H 05/21/20 07:50 89/72 L 05/21/20 04:52 36.6 C 86 18 94/68 L 95 05/21/20 01:48 100/50 L 05/21/20 01:34 80/35 L 05/21/20 01:18 110/73 05/21/20 00:38 84/57 L 05/21/20 00:18 36.7 C 85 18 72/54 L 97 Laboratory Results CBC 05/21/20 Range/Units 05:38 WBC 7.12 (4.8-10.8) K/uL RBC 4.33 L (4.7-6.1) M/uL Hgb 11.0 L (14.0-18.0) g/dL Hct 35.0 L (42-52) % Plt Count 420 H (130-400) K/uL Comprehensive Metabolic Panel 05/21/20 Range/Units 05:38 Sodium 141 (136-145) mmol/L Potassium 3.8 (3.5-5.1) mmol/L Chloride 106 (98-107) mmol/L Carbon Dioxide 30 (21-32) mmol/L BUN 19 H (7-18) mg/dl Creatinine 1.44 H (0.6-1.4) mg/dl Glucose 106 H (70-99) mg/dl Calcium 8.7 (8.5-10.1) mg/dl Intake and Output 05/20/20 05/21/20 05/21/20 22:59 06:59 14:59 Intake Total 620 / 2200 1000 / 2200 Output Total 300 / 1151 401 / 1151 Balance 320 / 1049 599 / 1049 Intake: IV 500 / 500 Nss 1000ML 500 ml @ 999 mls/hr 500 / 500 IV .Q31M ONE Rx#:[id number] Oral 620 / 1700 500 / 1700 Output: Urine 300 / 1150 400 / 1150 # Bowel Movements Diagnostic Findings Telemetry: Sinus rhythm, rate 70-90, no significant ectopy PG Care Time/CCT Total # of Minutes Spent Total Time Spent with Patient: Total time spent is greater than 50% in coordination of care (as documented) at patient's floor/unit and/or counseling patient: Coding Level of Care Code 37707 Subseq Hosp Care Lvl 3 Diagnoses Acute CHF (congestive heart failure) I50.21 Heart failure type: systolic Cardiomyopathy I42.0 Cardiomyopathy type: dilated ROSSY (acute kidney injury) N17.9 HBP (high blood pressure) I10 Hypertension type: essential hypertension (1) Acute CHF (congestive heart failure) Heart failure type: systolic Qualified Code(s): I50.21 - Acute systolic (congestive) heart failure (2) Cardiomyopathy Cardiomyopathy type: dilated Qualified Code(s): I42.0 - Dilated cardiomyopathy (3) HBP (high blood pressure) Hypertension type: essential hypertension Qualified Code(s): I10 - Essential (primary) hypertension
[2020-05-21] MEDS: FUROSEMIDE 20 MG TAB PO SCH (11:15)
[2020-05-21] MEDS: LOSARTAN POTASSIUM 25 MG TAB PO SCH (11:15)
--- NOTE | 2020-05-21 12:09 | Nephrology Consultation ---
Date of Consultation May 21, 2020 Assessment & Plan (1) Elevated serum creatinine: Anatoly admitted with progressive SOB for >1 week and found to have EF 30 to 35% with no prior h/o HTN, DM, CAD, CHF, and diagnosed with Cardiomyopathy, possibly idiopathic. On admission he was found to have a creatinine of 1.4 which has been staying stable from 1.4-1.5 over last 5 days. Urinalysis unremarkable. Unclear whether this is acute kidney injury or chronic as we do not have old record. Quite possible that he has some underlying mild CKD with residual renal impairment from prior ROSSY. His true creatinine clearance probably better than the eGFR. Unlikely any intrinsic renal disease with benign urinalysis. Cannot exclude possibility for cardiorenal syndrome if this is truly ROSSY in the setting of cardiomyopathy low EF. --will measure 24 hour urine creatinine clearance for better assessment of renal function --schedule for renal ultrasound although unlikely to have any postrenal obstruction and may not change the management. --okay to start on WILL-inhibitor/ARB for cardiomyopathy and possible underlying CKD --no serological workup indicated with no proteinuria or hematuria --patient will need to be set up with the primary care provider after discharge Will follow Thank you for allowing me to participate in your patient's care. It was a pleasure to see Anatoly (2) Cardiomyopathy: (3) Hepatic steatosis: History of Present Illness Reason for Consultation: Elevated Creatinine Attending Physician: Akosua Eid MD History of Present Illness Anatoly Enamorado is a 35-year-old young male with no significant past medical history admitted to the hospital with the idiopathic cardiomyopathy. Nephrology consult was requested to evaluate for elevated creatinine. Electronic medical records were reviewed in detail during patient visit. Anatoly was admitted on 05/17/20 with idiopathic cardiomyopathy after he presented with more than 1 week history of progressive shortness of breath. On admission he was found CT a was negative for PE, has was found to have bilateral pleural effusion and cardiomyopathy. 2D echo showed EF 30-35% with global hypokinesis. He was started on carvedilol 25 twice a day however he reports some multiple adverse effect with that and dose was just reduced to 6.25 mg twice a day. Was also continued on Lasix 20 mg p.o. daily. COVID 19 was negative. On admission was found to have creatinine 1.4 which has been relatively stable from 1.4-1.5 over last few days. Urinalysis was negative for proteinuria, hematuria pyuria. He denies some taking NSAIDs regularly. His a nonsmoker but has been smoking Marijuana regularly. No h/o hepatitis, HIV. No family history of chronic kidney disease or end-stage renal disease. He reports an episode of acute kidney injury 3-4 years ago in the setting of sepsis from oral abscess after tooth extraction. The renal function eventually improved without needing dialysis however he did not have any labs done since that time and has not been following with a healthcare professional over last few years. Does not have a primary care physician. He moved to [place] less than a year ago from near to be close to his family. Works as software manager. No prior h/o HTN, DM, BP has been well controlled. This morning he mainly c/o different side effect which he thinks form Carvedilol. SOB improved. Voiding normally. He always has dry mouth and drink water all the time. Allergies Allergy/AdvReac Type Severity Reaction Status Date / Time banana Allergy Severe Anaphylaxis Verified 05/17/20 16:49 erythromycin base Allergy Severe Anaphylaxis Verified 05/17/20 16:49 Penicillins Allergy Severe Anaphylaxis Verified 05/17/20 16:49 shellfish derived Allergy Severe Anaphylaxis Verified 05/17/20 16:49 strawberry Allergy Severe Anaphylaxis Verified 05/17/20 16:49 chocolate flavor Allergy Intermediate Hives Verified 05/17/20 16:49 Home Medications Medication Instructions Recorded Confirmed Type albuterol sulfate [Ventolin HFA] 2 puff INHALATION DIRECTED PRN 05/17/20 05/17/20 History ascorbic acid (vitamin C) [Vitamin 500 mg PO DAILY 05/17/20 05/17/20 History C] Patient History Medical History Penicillin allergy Surgical History No pertinent past surgical history Social History Smoking Status: Never smoker Hx Alcohol Use: Yes Alcohol type: hard liquor Hx Substance Use: Yes Last Used Substance: Days (ago) Last Used Substance Other:: new years Preferred Language: Indonesian Communication Ability: Effective Beliefs That Will Affect Care: [employer] Beliefs: does not eat pork Current Living Situation: Family Current Living Situation Comment: girlfriend and children Other Information That Helps Us Care for You: No Feels Safe at Home: Yes Safety Concerns: Feels Safe At This Time Assistive Devices: Glasses Review of Systems Review of Systems: All systems reviewed & are unremarkable except as noted in Subjective Physical Exam Constitutional: WD/WN, vitals as above + obese; no acute distress Eyes: PERRL, conjunctivae normal, anicteric sclerae ENMT: external ear and nose normal, oropharynx normal Ears: no hearing impairment Neck: trachea midline Respiratory: normal respiratory effort, lungs clear to auscultation no cough Auscultation: no crackles, no rales and no wheezes Cardiovascular: RRR, no murmur, no edema Gastrointestinal (Abdomen): normal bowel sounds, soft, nontender, no hepatosplenomegaly Percussion/Palpation: abdomen nontender, no guarding and abdomen not rigid Musculoskeletal: Extremities: extremities normal to inspection Gait: normal gait Skin: no rashes, warm and dry Neurologic: moves all extremities and awake Psychiatric: A+Ox3, euthymic affect Results & Data ([facility]) Vital Signs (Past 12 Hours) Vital Signs Temp Pulse Pulse Resp BP BP Pulse Ox 05/21/20 09:23 36.4 C L 93 H 20 112/73 96 05/21/20 08:00 94 H 05/21/20 07:50 89/72 L 05/21/20 04:52 36.6 C 86 18 94/68 L 95 05/21/20 01:48 100/50 L 05/21/20 01:34 80/35 L 05/21/20 01:18 110/73 05/21/20 00:38 84/57 L 05/21/20 00:18 36.7 C 85 18 72/54 L 97 PG Care Time/CCT Total # of Minutes Spent Total Time Spent with Patient: Total time spent is greater than 50% in coordination of care (as documented) at patient's floor/unit and/or counseling patient: Coding Level of Care Code 31200 Inpt Consult Level 5 Diagnoses Elevated serum creatinine R79.89 Cardiomyopathy I42.0 Cardiomyopathy type: dilated Hepatic steatosis K76.0 (1) Cardiomyopathy Cardiomyopathy type: dilated Qualified Code(s): I42.0 - Dilated cardiomyopathy
[2020-05-21 13:42] LABS: Albumin 3.3 g/dL (3.8-4.8); Alpha 1 Globulin 0.4 g/dL (0.2-0.3); Beta-1-Globulin 0.5 g/dL (0.4-0.6); Beta-2-Globulin 0.4 g/dL (0.2-0.5); Gamma Globulin 0.9 g/dL (0.8-1.7); Monoclonal Protein Band 1 DNR g/dL (NONE DETECTED); Monoclonal Protein Band 2 DNR g/dL (NONE DETECTED); Monoclonal Protein Band 3 DNR g/dL (NONE DETECTED); Total Protein 6.5 g/dL (6.1-8.1)
--- NOTE | 2020-05-21 15:25 | Ultrasound Report ---
RENAL ULTRASOUND CLINICAL HISTORY: Acute kidney injury. COMPARISON STUDY: None. TECHNIQUE: Sonography of the kidneys and the urinary bladder was performed. FINDINGS: This exam is mildly compromised by suboptimal penetration. There is no hydronephrosis. The right kidney measures 10.4 cm in maximal dimension and the left measures 11 cm. Both ureteral jets we re identified. Renal echogenicity, size and cortical thickness are normal. IMPRESSION: No hydronephrosis. ACT 112: Negative or not required by law. Electronically signed by: Rudolph Acevedo M.D. 05/21/2020 3:24 PM
--- NOTE | 2020-05-21 15:34 | Hospitalist Progress Note ---
Date of Service May 21, 2020 Assessment & Plan (1) Acute systolic CHF (congestive heart failure): 2-8 echo with EF 30-35% weight 158.4kg monitor strict ins and outs, continute daily weights give lasix 40mg IV once appreciate cardiology help they are considering viral etiology vs sarcoid, HIV, iron overload workup pending coreg started 2-9 weight 156.6kg TSH, T3 and T4 are normal HIV negative 2-10 weight 158.4kg, appears euvolemic 2-11 unable to take lasix today due to low BP (2) Tachycardia: TSH is low normal Free T3 and Free T4 levels are normal 2-10 tachycardia has resolved 2-11 unable to uptitrate coreg due to side effects fatigue, dizziness, nausea, gassy (3) ROSSY (acute kidney injury): 2-7 Cr 1.42, received lasix 2-8 Cr 1.54, cont to monitor while diuresing 2-9 Cr 1.43, stable 2-10 consult nephrology for evaluation and follow up recommendations 2 nephrology states likely underlying mild CKD due to prior ROSSY 24 hour urine creatinine clearance pending renal ultrasound start losartan for renal protection (4) Prediabetes: encourage weight loss (5) Anxiety: 2-9 received ativan last night will continue to use as needed (6) Hepatic steatosis: likely related to poor diet A1c 6.2% which is prediabetes (7) Pulmonary nodule: follow up as outpatient with PCP needs repeat imaging in 6months Admission and Anticipated Discharge Date Admission Date: May 17, 2020 Subjective Patient reports intolerance to coreg. States that he feels nausea, gas, fatigue, weakness, dizziness when he takes it. Overnight his BP was low requiring a bolus. Lasix was held this morning. Patient making adequate urine. Has poor appetite. Still having anxiety, not requiring the ativan since 2-8. Slept well. No shortness of breath, no cough, no edema Review of Systems Constitutional: + fatigue; no fever, no chills, no weakness, no anorexia, no weight loss and no weight gain Ear, Nose, Mouth, Throat: no nasal congestion, no sore throat and no dysphagia Respiratory: no cough and no dyspnea Cardiovascular: no chest pain, no dyspnea on exertion, no orthopnea and no palpitations Gastrointestinal: no abdominal pain, no nausea, no vomiting, no hematemesis, no dysphagia, no constipation, no diarrhea/loose stools, no blood in stools and no melena Genitourinary: no dysuria and no hematuria Musculoskeletal: no back pain, no joint pain, no myalgia and no muscle weakness Integumentary: no rash, no lesions, no skin ulcer, no erythema, no dry skin and no pruritus Neurologic: no falls, no localized weakness, no generalized weakness, no numbness, no paresthesia, no tremor(s) and no headache(s) Psychiatric: no depression, no suicidal ideation, no homicidal ideation and no anxiety Endocrine: no cold intolerance and no heat intolerance Hematologic / Lymphatic: no easy bleeding and no easy bruising Physical Exam Constitutional: well developed, well nourished and + obese; no acute distress Eyes: PERRL, conjunctivae normal, anicteric sclerae ENMT: Mouth: oral mucous membranes not dry Respiratory: normal respiratory effort; no respiratory distress and no labored breathing Auscultation: lungs clear to auscultation bilaterally; no crackles, no rales, no rhonchi and no wheezes Cardiovascular: Rate/Rhythm: regular rate and regular rhythm Heart Sounds: no murmur and no cardiac rub Vessels: normal peripheral pulses and radial pulses present; no JVD Extremities: no edema Gastrointestinal (Abdomen): Inspection/Auscultation: abdomen normal to inspection and normal bowel sounds; abdomen not distended Percussion/Palpation: abdomen soft; abdomen nontender, no guarding, abdomen not rigid and no hepatosplenomegaly Musculoskeletal: Head/Neck/Chest: normocephalic and head atraumatic Spine: no cervical spinal tenderness, no cervical muscular tenderness, no thoracic spinal tenderness and no lumbar spinal tenderness Skin: no rashes, warm and dry Neurologic: CN's II-XI intact bilaterally and moves all extremities Motor/Sensory: no tremor and no sensory deficit Psychiatric: Orientation: alert, oriented to person, oriented to place and oriented to time Apperance: appropriately groomed; not disheveled Affect: euthymic affect, + anxious affect and + irritable affect; no tearful affect Results & Data Results & Data ([facility]) Vital Signs (Past 12 Hours) Vital Signs Temp Pulse Pulse Resp BP BP Pulse Ox 05/21/20 12:39 37.3 C 88 20 92/58 L 98 05/21/20 09:23 36.4 C L 93 H 20 112/73 96 05/21/20 08:00 94 H 05/21/20 07:50 89/72 L 05/21/20 04:52 36.6 C 86 18 94/68 L 95 Laboratory Results Abnormal lab results 05/19/20 05/21/20 05/21/20 Range/Units 06:21 05:38 05:38 RBC 4.33 L (4.7-6.1) M/uL Hgb 11.0 L (14.0-18.0) g/dL Hct 35.0 L (42-52) % MCHC 31.4 L (32-36) g/dL RDW Coeff of [place] 14.8 H (11.5-14.5) % Plt Count 420 H (130-400) K/uL MPV 10.5 H (7.4-10.4) fL BUN 19 H (7-18) mg/dl Creatinine 1.44 H (0.6-1.4) mg/dl Glucose 106 H (70-99) mg/dl Magnesium 2.7 H (1.8-2.4) mg/dl Albumin (PEP) 3.3 L (3.8-4.8) g/dL Upwsy-2-Igyawqegt 0.4 H (0.2-0.3) g/dL Lqmtk-5-Dvibnzdca 1.0 H (0.5-0.9) g/dL Medications Administered Current Inpatient Medications Acetaminophen (Acetaminophen 325 Mg Tab) 650 mg PO Q4H PRN PRN Reason: Pain or Fever Stop: 06/16/20 22:18 Last Admin: 05/17/20 23:18 Dose: 650 mg Documented by: Al Hydrox/Mg Hydrox/Simethicone (Aluminum/Magnesium/Simeth (Maalox Max) 30 Ml Udc) 30 ml PO Q6H PRN PRN Reason: heartburn or gas Stop: 06/19/20 17:20 Last Admin: 05/20/20 17:45 Dose: 30 ml Documented by: Carvedilol (Carvedilol 6.25 Mg Tab) 6.25 mg PO BID NERI Stop: 06/20/20 20:59 Furosemide (Furosemide 20 Mg Tab) 20 mg PO QAM NERI Stop: 06/20/20 10:29 Last Admin: 05/21/20 11:15 Dose: 20 mg Documented by: Heparin Sodium (Porcine) (Heparin Sod 5,000 Unit/0.5 Ml Vial) 5,000 units SQ Q8 NERI Stop: 06/16/20 22:18 Last Admin: 05/21/20 15:15 Dose: Not Given Documented by: Lorazepam (Lorazepam 0.5 Mg Tab) 0.5 mg PO DAILY PRN PRN Reason: Anxiety Stop: 06/17/20 15:48 Last Admin: 05/18/20 20:24 Dose: 0.5 mg Documented by: Losartan Potassium (Losartan Potassium 25 Mg Tab) 25 mg PO QAM NERI Stop: 06/20/20 10:29 Last Admin: 05/21/20 11:15 Dose: 25 mg Documented by: Ondansetron HCl (Ondansetron Inj 2 Mg/Ml 2 Ml Vial) 4 mg IV Q6H PRN PRN Reason: Nausea Stop: 06/16/20 22:18 Last Admin: 05/21/20 01:50 Dose: 4 mg Documented by: Polyethylene Glycol (Polyethylene (Miralax) 17 Gm Pack) 17 gm PO DAILY PRN PRN Reason: Constipation Stop: 06/16/20 22:18 Potassium Chloride (Potassium Chloride 10 Meq Tabcr) 10 meq PO DAILY NERI Stop: 06/21/20 08:59 PG Care Time/CCT Total # of Minutes Spent Total Time Spent with Patient: Total time spent is greater than 50% in coordination of care (as documented) at patient's floor/unit and/or counseling patient: Coding Level of Care Code 00472 Subseq Hosp Care Lvl 2 Diagnoses Acute systolic CHF (congestive heart failure) I50.21 Tachycardia R00.0 ROSSY (acute kidney injury) N17.9 Prediabetes R73.03 Anxiety F41.9 Hepatic steatosis K76.0 Pulmonary nodule R91.1
[2020-05-21] MEDS: carvediloL 6.25 MG TAB PO SCH (21:48)
[2020-05-22] MEDS: HEPARIN SOD 5,000 UNIT/0.5 ML VIAL SQ SCH ×3 (04:27→21:57)
[2020-05-22 06:02] LABS: Hematocrit (blood only) 35.1 % (42-52); Mean Corpuscular Hemoglobin 25.2 pg (25-34); Mean Corpuscular Hgb Conc 31.3 g/dL (32-36); Mean Corpuscular Volume 80.5 fL (80-100); Mean Platelet Volume 10.2 fL (7.4-10.4); Platelet Count 417 K/uL (130-400); RDW Coefficient of Variation 14.6 % (11.5-14.5); RDW Standard Deviation 42.7 fL (36.4-46.3); Red Blood Count 4.36 M/uL (4.7-6.1); White Blood Count 5.28 K/uL (4.8-10.8)
[2020-05-22 06:30] LABS: Albumin Level 3.2 gm/dl (3.4-5.0); BUN Creatinine Ratio 13.1 (10-20); Calcium 8.9 mg/dl (8.5-10.1); Est GFR (African American) 66.8; Est GFR (Non-African American) 57.6; Magnesium 2.5 mg/dl (1.8-2.4); Potassium 4.1 mmol/L (3.5-5.1)
[2020-05-22 06:33] LABS: Albumin Globulin Ratio 0.8 (0.9-2); Bilirubin,Total 0.4 mg/dl (0.2-1); Globulin 3.8 gm/dl (2.5-4.0); Phosphorus 3.7 mg/dl (2.5-4.9)
[2020-05-22] MEDS: POTASSIUM CHLORIDE 10 MEQ TABCR PO SCH (08:23)
[2020-05-22] MEDS: FUROSEMIDE 20 MG TAB PO SCH (08:23)
[2020-05-22] MEDS: LOSARTAN POTASSIUM 25 MG TAB PO SCH (08:24)
[2020-05-22] MEDS: carvediloL 6.25 MG TAB PO SCH (08:24)
[2020-05-22] MEDS: LORazepam 0.5 MG TAB PO PRN (08:27)
--- NOTE | 2020-05-22 10:24 | Cardiology Progress Note ---
Date of Service May 22, 2020 Assessment & Plan (1) Acute CHF (congestive heart failure): He presented in congestive heart failure with an elevated BNP, orthopnea and PND and dyspnea on exertion. He was diuresed for several days and felt much better although he still had symptoms compatible with orthopnea and PND. That has improved and he can now lay essentially flat. He has been having trouble handling a fluid restriction, he also has been hypotensive and may not be significantly fluid overloaded. We may be able to maintain his weight where it currently is for the time being. (2) Cardiomyopathy: He has a significant cardiomyopathy which was identified this admission. Based on symptoms it may have started somewhere around March 2020 although it is possible that is only when he became symptomatic. Around January 2020 however he was doing very heavy work and having no difficulty so I suspect it is recent. It is likely viral or idiopathic however we should rule out reversible causes including sarcoid, HIV, iron overload, etc. the protein electrophoresis suggested inflammatory response but is not indicative of amyloidosis. This is interesting in light of his recent development of the cardiomyopathy suggesting it may be a myocarditis but it does not change treatment., he is somewhat anemic and his iron level is low which may need to be evaluated but that is not a cause of cardiomyopathy. His HIV test was negative. We may also want to exclude coronary disease although that is unlikely given the global nature of the cardiomyopathy and lack of anginal symptoms, although he does have ST-T abnormalities. Troponin is negative suggesting it is not an acute ischemic event. His kidney function is not normal but not bad enough so we could consider catheterization but we do not need to make that determination as yet. We also need to titrate his Beta-blockers and his ARB over time and consider a change to Entresto however I would continue the current low doses of medications and hope his tolerance improves. He has responded to the current dose of carvedilol with a slight decrease in heart rate but his blood pressure is low at times and we have been forced to cut back the carvedilol. Additionally he is having significant side effects which he attributes to carvedilol. I would like to continue carvedilo at a low dose (6.25 mg twice a day) as well as low-dose losartan. Perhaps he will tolerate this better with fewer side effects and we can titrate as an outpatient. (3) ROSSY (acute kidney injury): He had an elevated creatinine on presentation and that has fluctuated somewhat since admission but all around the same level which is slightly increased. I do not know if this represents an intrinsic problem with kidney function or if it is cardiorenal syndrome. Appreciate nephrology input, we will start low-dose ARB therapy. (4) HBP (high blood pressure): His blood pressure was quite elevated on presentation although he does not believe he has had a long-term problem with it. I do not know how regularly it has been evaluated however. His blood pressure normalized and then became quite low for reasons which not entirely clear, he was on moderate dose beta-bryon and perhaps he is sensitive to it. He is now on very low doses of beta-blockade and ARB therapy and his pressure remains low at times. Hopefully he can tolerate heart failure medications over the long run. Admission and Anticipated Discharge Date Admission Date: May 17, 2020 Subjective He continues to have some difficulty with the medications, reporting nausea but feels that it is tolerable. He does not have lightheadedness, dizziness or palpitations. He is laying nearly supine in bed and is not short of breath. Physical Exam Physical Exam: Constitutional: Alert, cooperative and in no distress. HEENT: Unremarkable Neck: No jugular venous distention, carotid pulses are irregular but otherwise normal and equal bilaterally without bruits. Pulmonary: Clear to auscultation bilaterally. Cardiac: Irregular rhythm with no murmur, gallop or rub. Abdomen: Soft, nontender with normal bowel sounds. Extremities: No edema. Distal pulses intact. Neurologic: No focal findings. Gait is steady. Skin: No rash, ecchymoses or petechiae. Results & Data ([facility]) Vital Signs (Past 12 Hours) Vital Signs Temp Pulse Pulse Resp BP BP Pulse Ox 05/22/20 08:00 36.6 C 101 H 20 139/90 98 05/22/20 03:59 36.8 C 96 H 18 113/78 96 05/21/20 23:52 36.7 C 65 18 85/60 L 96 05/21/20 23:27 98 H Laboratory Results Cardiac Enzymes 05/22/20 Range/Units 05:46 AST 12 L (15-37) U/L CBC 05/22/20 Range/Units 05:46 WBC 5.28 (4.8-10.8) K/uL RBC 4.36 L (4.7-6.1) M/uL Hgb 11.0 L (14.0-18.0) g/dL Hct 35.1 L (42-52) % Plt Count 417 H (130-400) K/uL Comprehensive Metabolic Panel 05/21/20 05/22/20 Range/Units 20:15 05:46 Sodium 140 (136-145) mmol/L Potassium 4.1 (3.5-5.1) mmol/L Chloride 106 (98-107) mmol/L Carbon Dioxide 29 (21-32) mmol/L BUN 20 H (7-18) mg/dl Creatinine 1.60 H 1.53 H (0.6-1.4) mg/dl Glucose 101 H (70-99) mg/dl Calcium 8.9 (8.5-10.1) mg/dl AST 12 L (15-37) U/L ALT 48 (12-78) U/L Alkaline Phosphatase 42 L (45-117) U/L Total Protein 7.0 (6.4-8.2) gm/dl Albumin 3.2 L (3.4-5.0) gm/dl Intake and Output 05/21/20 05/22/20 05/22/20 22:59 06:59 14:59 Intake Total 720 / 1190 350 / 1190 Output Total 575 / 575 Balance 720 / 615 -225 / 615 Intake: Oral 720 / 1190 350 / 1190 Output: Urine 575 / 575 Other: # Unmeasured Voids 3 Diagnostic Findings Telemetry: Sinus rhythm and sinus tachycardia, heart rate averaging around 100 perhaps a little bit less. PG Care Time/CCT Total # of Minutes Spent Total Time Spent with Patient: Total time spent is greater than 50% in coordination of care (as documented) at patient's floor/unit and/or counseling patient: Coding Level of Care Code 90507 Subseq Hosp Care Lvl 2 Diagnoses Acute CHF (congestive heart failure) I50.21 Heart failure type: systolic Cardiomyopathy I42.0 Cardiomyopathy type: dilated ROSSY (acute kidney injury) N17.9 HBP (high blood pressure) I10 Hypertension type: essential hypertension (1) Acute CHF (congestive heart failure) Heart failure type: systolic Qualified Code(s): I50.21 - Acute systolic (congestive) heart failure (2) Cardiomyopathy Cardiomyopathy type: dilated Qualified Code(s): I42.0 - Dilated cardiomyopathy (3) HBP (high blood pressure) Hypertension type: essential hypertension Qualified Code(s): I10 - Essential (primary) hypertension
--- NOTE | 2020-05-22 10:54 | Hospitalist Progress Note ---
Date of Service May 22, 2020 Assessment & Plan (1) Acute systolic CHF (congestive heart failure): 2-8 echo with EF 30-35% weight 158.4kg monitor strict ins and outs, continue daily weights give lasix 40mg IV once appreciate cardiology help they are considering viral etiology vs sarcoid, HIV, iron overload workup pending coreg started 2-9 weight 156.6kg TSH, T3 and T4 are normal HIV negative 2-10 weight 158.4kg, appears euvolemic 2-11 unable to take lasix today due to low BP (2) Tachycardia: TSH is low normal Free T3 and Free T4 levels are normal 2-10 tachycardia has resolved 2-11 unable to uptitrate coreg due to side effects fatigue, dizziness, nausea, gassy 2-12 stop coreg, as he is complaining that it is causing 8/10 abdominal pain even with lower dose switch to metoprolol XL 25 if he continues to complain of side effects, recommend taking with food to see if that helps (3) Abdominal pain: He states 8/10 pain occurs after receiving the coreg Likely he has pill esophagitis or gastritis and needs to take his medications with food Checking CT abdomen/pelvis, as he is also complaining of diarrhea 4 x per day since starting the coreg CT abd/pelvis without acute abnormality If symptoms persist, will need GI for endoscopy (4) ROSSY (acute kidney injury): 2-7 Cr 1.42, received lasix 2-8 Cr 1.54, cont to monitor while diuresing 2-9 Cr 1.43, stable 2-10 consult nephrology for evaluation and follow up recommendations 2-11 nephrology states likely underlying mild CKD due to prior ROSSY 24 hour urine creatinine clearance pending renal ultrasound normal start losartan for renal protection (5) Prediabetes: encourage weight loss (6) Anxiety: 2-9 received ativan last night will continue to use as needed (7) Hepatic steatosis: likely related to poor diet A1c 6.2% which is prediabetes (8) Pulmonary nodule: follow up as outpatient with PCP needs repeat imaging in 6months Admission and Anticipated Discharge Date Admission Date: May 17, 2020 Subjective Not tolerating the coreg -- still having abdominal pain after taking the pill. Abd pain is 8/10 in severity, causes him to go into "" position. Did not have abdominal pains prior to taking coreg. Is not taking coreg with food. Is having associated liquid BM's four times per day. Denies shortness of breath, denies edema, no cough. No palpitations, no chest pain. Undergoing 24hour urine collection currently. No dysuria, no hematuria. Review of Systems Constitutional: no fever, no chills, no fatigue, no weakness, no anorexia, no weight loss and no weight gain Ear, Nose, Mouth, Throat: no nasal congestion, no sore throat and no dysphagia Respiratory: no cough and no dyspnea Cardiovascular: no chest pain, no dyspnea on exertion, no orthopnea and no palpitations Gastrointestinal: + abdominal pain and + diarrhea/loose stools; no nausea, no vomiting, no hematemesis, no dysphagia, no constipation, no blood in stools and no melena Genitourinary: no dysuria and no hematuria Musculoskeletal: no back pain, no joint pain, no myalgia and no muscle weakness Integumentary: no rash, no lesions, no skin ulcer, no erythema, no dry skin and no pruritus Neurologic: no falls, no localized weakness, no generalized weakness, no numbness, no paresthesia, no tremor(s) and no headache(s) Psychiatric: no depression, no suicidal ideation, no homicidal ideation and no anxiety Endocrine: no cold intolerance and no heat intolerance Hematologic / Lymphatic: no easy bleeding and no easy bruising Physical Exam Constitutional: well developed, well nourished and + obese; no acute distress Eyes: PERRL, conjunctivae normal, anicteric sclerae ENMT: Mouth: oral mucous membranes not dry Respiratory: normal respiratory effort; no respiratory distress and no labored breathing Auscultation: lungs clear to auscultation bilaterally; no crackles, no rales, no rhonchi and no wheezes Cardiovascular: Rate/Rhythm: regular rate and regular rhythm Heart Sounds: no murmur and no cardiac rub Vessels: normal peripheral pulses and radial pulses present; no JVD Extremities: no edema Gastrointestinal (Abdomen): Inspection/Auscultation: abdomen normal to inspection and normal bowel sounds; abdomen not distended Percussion/Palpation: abdomen soft; abdomen nontender, no guarding, abdomen not rigid and no hepatosplenomegaly Musculoskeletal: Head/Neck/Chest: normocephalic and head atraumatic Spine: no cervical spinal tenderness, no cervical muscular tenderness, no thoracic spinal tenderness and no lumbar spinal tenderness Skin: no rashes, warm and dry Neurologic: CN's II-XI intact bilaterally and moves all extremities Motor/Sensory: no tremor and no sensory deficit Psychiatric: Orientation: alert, oriented to person, oriented to place and oriented to time Apperance: appropriately groomed; not disheveled Affect: euthymic affect, + anxious affect and + irritable affect; no tearful affect Results & Data Results & Data ([facility]) Vital Signs (Past 12 Hours) Vital Signs Temp Pulse Pulse Resp BP BP Pulse Ox 05/22/20 08:00 36.6 C 101 H 20 139/90 98 05/22/20 03:59 36.8 C 96 H 18 113/78 96 05/21/20 23:52 36.7 C 65 18 85/60 L 96 05/21/20 23:27 98 H Laboratory Results Abnormal lab results 05/19/20 05/21/20 05/22/20 Range/Units 06:21 20:15 05:46 RBC (4.7-6.1) M/uL Hgb (14.0-18.0) g/dL Hct (42-52) % MCHC (32-36) g/dL RDW Coeff of [place] (11.5-14.5) % Plt Count (130-400) K/uL BUN 20 H (7-18) mg/dl Creatinine 1.60 H 1.53 H (0.6-1.4) mg/dl Glucose 101 H (70-99) mg/dl Magnesium 2.5 H (1.8-2.4) mg/dl AST 12 L (15-37) U/L Alkaline Phosphatase 42 L (45-117) U/L Albumin 3.2 L (3.4-5.0) gm/dl Albumin (PEP) 3.3 L (3.8-4.8) g/dL Albumin/Globulin Ratio 0.8 L (0.9-2) Vytxp-4-Lmoqrojls 0.4 H (0.2-0.3) g/dL Isxka-6-Cswvgyknp 1.0 H (0.5-0.9) g/dL 05/22/20 Range/Units 05:46 RBC 4.36 L (4.7-6.1) M/uL Hgb 11.0 L (14.0-18.0) g/dL Hct 35.1 L (42-52) % MCHC 31.3 L (32-36) g/dL RDW Coeff of [place] 14.6 H (11.5-14.5) % Plt Count 417 H (130-400) K/uL BUN (7-18) mg/dl Creatinine (0.6-1.4) mg/dl Glucose (70-99) mg/dl Magnesium (1.8-2.4) mg/dl AST (15-37) U/L Alkaline Phosphatase (45-117) U/L Albumin (3.4-5.0) gm/dl Albumin (PEP) (3.8-4.8) g/dL Albumin/Globulin Ratio (0.9-2) Jinlv-5-Qfnagqxpd (0.2-0.3) g/dL [place]-3-Idfkctfsg (0.5-0.9) g/dL Medications Administered Current Inpatient Medications Acetaminophen (Acetaminophen 325 Mg Tab) 650 mg PO Q4H PRN PRN Reason: Pain or Fever Stop: 06/16/20 22:18 Last Admin: 05/17/20 23:18 Dose: 650 mg Documented by: Al Hydrox/Mg Hydrox/Simethicone (Aluminum/Magnesium/Simeth (Maalox Max) 30 Ml Udc) 30 ml PO Q6H PRN PRN Reason: heartburn or gas Stop: 06/19/20 17:20 Last Admin: 05/20/20 17:45 Dose: 30 ml Documented by: Furosemide (Furosemide 20 Mg Tab) 20 mg PO QAM [facility] Stop: 06/20/20 10:29 Last Admin: 05/22/20 08:23 Dose: 20 mg Documented by: Heparin Sodium (Porcine) (Heparin Sod 5,000 Unit/0.5 Ml Vial) 5,000 units SQ Q8 [facility] Stop: 06/16/20 22:18 Last Admin: 05/22/20 04:27 Dose: Not Given Documented by: Lorazepam (Lorazepam 0.5 Mg Tab) 0.5 mg PO DAILY PRN PRN Reason: Anxiety Stop: 06/17/20 15:48 Last Admin: 05/22/20 08:27 Dose: 0.5 mg Documented by: Losartan Potassium (Losartan Potassium 25 Mg Tab) 25 mg PO QAM [facility] Stop: 06/20/20 10:29 Last Admin: 05/22/20 08:24 Dose: 25 mg Documented by: Metoprolol Succinate (Metoprolol Succ 25mg Ext Rel Tab) 25 mg PO QAM [facility] Stop: 06/21/20 10:59 Ondansetron HCl (Ondansetron Inj 2 Mg/Ml 2 Ml Vial) 4 mg IV Q6H PRN PRN Reason: Nausea Stop: 06/16/20 22:18 Last Admin: 05/21/20 01:50 Dose: 4 mg Documented by: Polyethylene Glycol (Polyethylene (Miralax) 17 Gm Pack) 17 gm PO DAILY PRN PRN Reason: Constipation Stop: 06/16/20 22:18 Potassium Chloride (Potassium Chloride 10 Meq Tabcr) 10 meq PO DAILY [facility] Stop: 06/21/20 08:59 Last Admin: 05/22/20 08:23 Dose: 10 meq Documented by: PG Care Time/CCT Total # of Minutes Spent Total Time Spent with Patient: Total time spent is greater than 50% in coordination of care (as documented) at patient's floor/unit and/or counseling patient: Coding Level of Care Code 76145 Subseq Hosp Care Lvl 2 Diagnoses Acute systolic CHF (congestive heart failure) I50.21 Tachycardia R00.0 Abdominal pain R10.9 Abdominal location: unspecified location ROSSY (acute kidney injury) N17.9 Prediabetes R73.03 Anxiety F41.9 Hepatic steatosis K76.0 Pulmonary nodule R91.1 (1) Abdominal pain Abdominal location: unspecified location Qualified Code(s): R10.9 - Unspecified abdominal pain
[2020-05-22] MEDS ORDERED: METOPROLOL SUCC 25MG EXT REL TAB PO SCH (11:00)
--- NOTE | 2020-05-22 12:08 | Nephrology Progress Note ---
Date of Service May 22, 2020 Assessment & Plan (1) Elevated serum creatinine: Anatoly admitted with progressive SOB for >1 week and found to have EF 30 to 35% with no prior h/o HTN, DM, CAD, CHF, and diagnosed with Cardiomyopathy, possibly idiopathic. On admission he was found to have a creatinine of 1.4 which has been staying stable from 1.4-1.5 over last 5 days. Urinalysis unremarkable. Unclear whether this is acute kidney injury or chronic as we do not have old record. Quite possible that he has some underlying mild CKD with residual renal impairment from prior ROSSY. His true creatinine clearance probably better than the eGFR. Unlikely any intrinsic renal disease with benign urinalysis. Cannot exclude possibility for cardiorenal syndrome if this is truly ROSSY in the setting of cardiomyopathy low EF. Creatinine continues to be relatively stable. Renal ultrasound was otherwise unremarkable. --24 hour urine creatinine clearance is pending. --continue on WILL-inhibitor/ARB for cardiomyopathy and possible underlying CKD --patient will need to be set up with the primary care provider after discharge --if any plan for discharge today, okay to cancel 24 hour urine collection, we can set that up as an outpatient during follow-up visit. --follow-up visit in CKD clinic in 3-4 weeks Will follow (2) Cardiomyopathy: (3) Hepatic steatosis: Admission and Anticipated Discharge Date Admission Date: May 17, 2020 Subjective Anatoly was seen and examined in his room this morning. Overall he is doing well, denies any specific symptoms except multiple adverse effects he thinks from Carvedilol. No shortness of breath or chest pain. Blood pressure fair. Electrolyte acceptable. Cr relatively stable. Review of Systems Review of Systems: All systems reviewed & are unremarkable except as noted in Subjective Physical Exam Constitutional: WD/WN, vitals as above + obese; no acute distress Respiratory: normal respiratory effort, lungs clear to auscultation no cough Auscultation: no crackles, no rales and no wheezes Cardiovascular: RRR, no murmur, no edema Musculoskeletal: Extremities: extremities normal to inspection Gait: normal gait Skin: no rashes, warm and dry Neurologic: moves all extremities and awake Psychiatric: A+Ox3, euthymic affect Results & Data ([facility]) Vital Signs (Past 12 Hours) Vital Signs Temp Pulse Resp BP Pulse Ox 05/22/20 08:00 36.6 C 101 H 20 139/90 98 05/22/20 03:59 36.8 C 96 H 18 113/78 96 PG Care Time/CCT Total # of Minutes Spent Total Time Spent with Patient: Total time spent is greater than 50% in coordination of care (as documented) at patient's floor/unit and/or counseling patient: Coding Level of Care Code 41883 Subseq Hosp Care Lvl 3 Diagnoses Elevated serum creatinine R79.89 Cardiomyopathy I42.0 Cardiomyopathy type: dilated Hepatic steatosis K76.0 (1) Cardiomyopathy Cardiomyopathy type: dilated Qualified Code(s): I42.0 - Dilated cardiomyopathy
--- NOTE | 2020-05-22 12:23 | CT Scan Report ---
CT OF THE ABDOMEN AND PELVIS WITHOUT CONTRAST CLINICAL HISTORY: Abdominal pain. COMPARISON STUDY: Renal ultrasound May 21, 2010. TECHNIQUE: Axial images of the abdomen and pelvis were obtained without IV contrast. Images were revi ewed in the axial, sagittal, and coronal planes. Automated exposure control was utilized for the aleksandar dy. A dose lowering technique was utilized adhering to the principles of ALARA. FINDINGS: Medically is again noted. A small right pleural effusion has decreased in size since chest CT May 17, 2020. There is a trace left pleural effusion. An 8 mm nodular opacity within the right lower lobe on image 1 of 481 is unchanged. This is partially imaged. Several nodular ill-defined air space opacities within the left lower lobe with groundglass opacity are noted. Evaluation of the abdo men and pelvis is suboptimal on this unenhanced exam. In addition, there is artifact from body wall c ontacting the gantry. No pneumatosis, free air or portal venous gas is present. There is mild hepatom egaly. No hepatic lesions are identified on this unenhanced exam. There is no peripancreatic or peric holecystic infiltration. There is no biliary or pancreatic ductal dilatation. Unenhanced images of th e spleen, adrenal glands and kidneys are normal. There is no hydronephrosis. A small amount of ascite s within the abdomen and pelvis is noted. There is body wall edema. There is no evidence for a bowel obstruction. The appendix is not visualized. No acute fracture or suspicious lesion is identified wit hin visualized skeletal structures. IMPRESSION: 1. No urinary calculi or hydronephrosis. 2. Suboptimal evaluation of the remainder of the abdomen and pelvis on this unenhanced exam. In addit ion, artifact from body wall contacting the gantry. 3. Small amount of ascites within the abdomen and pelvis. Body wall edema. Interval decrease in size of a small right pleural effusion. Trace left pleural effusion. 4. A few small nodular airspace opacities within the left lower lobe. The findings favor an infectiou s process although alveolar edema could appear similar. 5. Mild hepatomegaly. 6. No bowel obstruction. ACT 112: Negative or not required by law. Electronically signed by: Rudolph Acevedo M.D. 05/22/2020 12:22 PM
[2020-05-22] MEDS ORDERED: METOPROLOL SUCC 25MG EXT REL TAB PO STA (15:20)
[2020-05-23] MEDS: HEPARIN SOD 5,000 UNIT/0.5 ML VIAL SQ SCH ×2 (04:23→15:32)
[2020-05-23 06:58] LABS: Hematocrit (blood only) 36.1 % (42-52); Hemoglobin 11.5 g/dL (14.0-18.0); Mean Corpuscular Hemoglobin 25.2 pg (25-34); Mean Corpuscular Hgb Conc 31.9 g/dL (32-36); Mean Platelet Volume 10.4 fL (7.4-10.4); Platelet Count 413 K/uL (130-400); RDW Coefficient of Variation 14.4 % (11.5-14.5); RDW Standard Deviation 40.8 fL (36.4-46.3); Red Blood Count 4.57 M/uL (4.7-6.1); White Blood Count 7.06 K/uL (4.8-10.8)
[2020-05-23 07:32] LABS: Albumin Level 3.4 gm/dl (3.4-5.0); BUN Creatinine Ratio 12.5 (10-20); Calcium 9.2 mg/dl (8.5-10.1); Est GFR (African American) 70.1; Est GFR (Non-African American) 60.5; Magnesium 2.5 mg/dl (1.8-2.4); Potassium 4.1 mmol/L (3.5-5.1)
[2020-05-23 07:58] LABS: Patient Weight 154.8 kg
[2020-05-23] MEDS: FUROSEMIDE 20 MG TAB PO SCH (08:12)
[2020-05-23] MEDS: LOSARTAN POTASSIUM 25 MG TAB PO SCH (08:12)
[2020-05-23] MEDS: ACETAMINOPHEN 325 MG TAB PO PRN (08:13)
[2020-05-23] MEDS: POTASSIUM CHLORIDE 10 MEQ TABCR PO SCH (08:13)
[2020-05-23 08:24] LABS: Urine Total Protein 13.2 mg/dl
[2020-05-23] MEDS ORDERED: METOPROLOL SUCC 50MG EXT REL TAB PO SCH (09:00)
[2020-05-23 09:41] LABS: Total Protein 24 Hour Urine 184.8 mg/24 Hr (0-149.1)
[2020-05-23 09:42] LABS: Creatinine Clearance Urine 70.4 ml/min (97-137)
[2020-05-23] MEDS ORDERED: FERROUS SULFATE 325 MG TAB PO SCH (11:00)
--- NOTE | 2020-05-23 12:14 | Nephrology Progress Note ---
Date of Service May 23, 2020 Assessment & Plan (1) Elevated serum creatinine: Creatinine stable. 24 h CrCl consistent with eGFR (70 ml/min). A2 proteinuria. Normal kidneys without cortical atrophy on imaging. UA bland and acellular. Urinalysis unremarkable. Acuity/chronicity of kidney dysfunction unclear. Thankfully, no red flag features requiring emergent evaluation such as renal biopsy. Clinical presentation suggestive of acute tubular dysfunction versus chronic glomerulosclerosis (possibly secondary to obesity). Volume status acceptable. Adequate urine output with furosemide 20 mg daily. Medications appropriately dosed for kidney function. Tolerating losartan well. Medication may be titrated as needed. No monoclonal abnormality on SPEP. Close outpatient follow up with Dr. Romero in the nephrology clinic advised. No additional recommendations at this time. Admission and Anticipated Discharge Date Admission Date: May 17, 2020 Subjective No acute events overnight. Anatoly felt well this AM. He stated that he hoped to be discharged home. No urinary complaints. Breathing comfortably. Edema improved. Nausea with medications reported. No chest pain or palpitations. No fevers or chills. Denies diarrhea or constipation. Review of Systems Review of Systems: All systems reviewed & are unremarkable except as noted in HPI & below Physical Exam Constitutional: well developed and + obese; no acute distress Eyes: + scleral abnormality and + anicteric sclerae ENMT: Mouth: no oral mucosal abnormality and oral mucous membranes not dry Neck: normal visual inspection and trachea midline Respiratory: normal respiratory effort Auscultation: lungs clear to auscultation bilaterally Cardiovascular: Rate/Rhythm: regular rate Heart Sounds: normal S1 and normal S2 Vessels: no JVD Extremities: + edema (+1 dependent LE noted) Musculoskeletal: Extremities: no cyanosis and no clubbing Skin: normal turgor Neurologic: Motor/Sensory: no tremor and no asterixis Psychiatric: Orientation: alert and oriented x 3 Results & Data ([facility]) Vital Signs (Past 12 Hours) Vital Signs Temp Pulse Resp BP BP Pulse Ox 05/23/20 11:49 36.7 C 83 22 128/74 96 05/23/20 07:45 36.7 C 92 H 21 120/87 94 05/23/20 04:13 37.1 C 92 H 20 154/77 H 95 Laboratory Results Laboratory Results - last 24 hr 05/23/20 05/23/20 05/23/20 04:00 04:00 06:19 WBC 7.06 RBC 4.57 L Hgb 11.5 L Hct 36.1 L MCV 79.0 L MCH 25.2 MCHC 31.9 L RDW Std Deviation 40.8 RDW Coeff of [place] 14.4 Plt Count 413 H MPV 10.4 Sodium Potassium Chloride Carbon Dioxide Anion Gap BUN Creatinine Est Cr Clr Drug Dosing Est GFR ( Amer) Est GFR (Non-Af Amer) BUN/Creatinine Ratio Glucose Calcium Phosphorus Magnesium Ferritin Albumin Urine Collection Time 24 Urine Total Volume 1400 1400 Urine Creatinine 178.0 Ur Creatinine 24 Hour 2.5 Height (cm) 193.0 Weight (kg) 154.8 Creatinine Clearance 70.4 L Ur Total Protein 24 Hr 184.8 H Urine Total Protein 13.2 05/23/20 05/23/20 06:19 06:19 WBC RBC Hgb Hct MCV MCH MCHC RDW Std Deviation RDW Coeff of Haven Plt Count MPV Sodium 140 Potassium 4.1 Chloride 108 H Carbon Dioxide 25 Anion Gap 6.0 BUN 18 Creatinine 1.47 H Est Cr Clr Drug Dosing 112.0 Est GFR ( Amer) 70.1 Est GFR (Non-Af Amer) 60.5 BUN/Creatinine Ratio 12.5 Glucose 95 Calcium 9.2 Phosphorus 3.0 Magnesium 2.5 H Ferritin 18.3 Albumin 3.4 Urine Collection Time Urine Total Volume Urine Creatinine Ur Creatinine 24 Hour Height (cm) Weight (kg) Creatinine Clearance Ur Total Protein 24 Hr Urine Total Protein PG Care Time/CCT Total # of Minutes Spent Total Time Spent with Patient: Total time spent is greater than 50% in coordination of care (as documented) at patient's floor/unit and/or counseling patient: Coding Level of Care Code 62002 Subseq Hosp Care Lvl 3 Diagnoses Elevated serum creatinine R79.89
[2020-05-23] MEDS ORDERED: SUCRALFATE 1 GM/10 ML UDC PO SCH (14:10)
[2020-05-23] MEDS ORDERED: FAMOTIDINE 20MG IV PUSH 20 MG/5 ML SYR IV ONE (14:30)
--- NOTE | 2020-05-23 18:07 | Discharge Summary ---
Date of Service date of admission - May 17, 2020 date of discharge - May 23, 2020 Admission HPI Per Admitting Provider 35 yo M no PMHx presented to the ER for complaints of worsening dyspnea over the last 10 or so days, such that he cannot lie flat or bend forward without feeling like he is "choking". Reports that around , he had some episodes of shortness of breath but that seemed to go away after couple of days. Over the last 10 days however, he has been barely getting any rest at night because when he lies flat he feels like he cannot breathe, feels most comfortable sitting upright. Also starts to feel short of breath when he bends over to tie his shoes. No tobacco smoking history, but does endorse a history of marijuana smoking prior to his illness around . Also endorses a cough during this time, nonproductive, and due to the amount of coughing has started to have some chest tightness. No chest pain down the arm, up the jaw. No dizziness or headache. Did try home nebulizer treatments with mild relief however he would start to feel his heart race. In the ER patient was noted to be tachycardic, hypertensive, tachypneic, afebrile, saturating well on room air. WBCs normal, creatinine 1.42, proBNP 1536. Covid negative. CT PE protocol performed without findings suggestive of PE or pneumonia Principal Diagnosis acute systolic congestive heart failure - etiology uncertain iron deficiency Discharge Exam Constitutional + morbidly obese; no acute distress and no altered mental status ENMT external ear and nose normal, oropharynx normal Respiratory no respiratory distress Auscultation: + diminished lung sounds (Bases), + crackles and + bronchovesicular breath sounds; no wheezes Cardiovascular Rate/Rhythm: regular rate and regular rhythm Heart Sounds: normal S1 and normal S2; no murmur Vessels: posterior tibial pulses present and dorsalis pedis pulses present; no JVD Extremities: + edema (<1+ b/l ) Gastrointestinal (Abdomen) normal bowel sounds, soft, nontender, no hepatosplenomegaly Psychiatric A+Ox3, euthymic affect Discharge Data Allergies Allergy/AdvReac Type Severity Reaction Status Date / Time banana Allergy Severe Anaphylaxis Verified 05/17/20 16:49 erythromycin base Allergy Severe Anaphylaxis Verified 05/17/20 16:49 Penicillins Allergy Severe Anaphylaxis Verified 05/17/20 16:49 shellfish derived Allergy Severe Anaphylaxis Verified 05/17/20 16:49 strawberry Allergy Severe Anaphylaxis Verified 05/17/20 16:49 chocolate flavor Allergy Intermediate Hives Verified 05/17/20 16:49 Consultations [facility] Nephrology Consult Lung Nodule Program Procedures Performed Echocardiogram: * EF 30-35% * left ventricle is moderately dilated * moderate GLOBAL hypokinesis of left ventricle * normal LV wall thickness * mild mitral regurgitation * left atrium is moderately dilated * mild tricuspid regurgitation * normal RV systolic pressure Ordered Studies 05/17/20 18:18 CT angio chest PE protocol Stat IMPRESSION: 1. Cardiomegaly without evidence of pulmonary emboli. 2. Right greater than left pleural effusions with minimal bibasilar densities suggestive of atelectasis versus pneumonitis. 3. 7 mm solid nodule of the right lower lobe. 4. Mild bilateral bronchial wall thickening suggests bronchitis versus reactive airway disease. 5. Hepatic steatosis. 05/21/20 15:00 US renal/blad retro comp Routine FINDINGS: This exam is mildly compromised by suboptimal penetration. There is no hydronephrosis. The right kidney measures 10.4 cm in maximal dimension and the left measures 11 cm. Both ureteral jets were identified. Renal echogenicity, size and cortical thickness are normal. 05/22/20 11:00 CT abd pelvis wo con Routine IMPRESSION: 1. No urinary calculi or hydronephrosis. 2. Suboptimal evaluation of the remainder of the abdomen and pelvis on this unenhanced exam. In addition, artifact from body wall contacting the gantry. 3. Small amount of ascites within the abdomen and pelvis. Body wall edema. Interval decrease in size of a small right pleural effusion. Trace left pleural effusion. 4. A few small nodular airspace opacities within the left lower lobe. The findings favor an infectious process although alveolar edema could appear similar. 5. Mild hepatomegaly. 6. No bowel obstruction. Hospital Course (1) Acute systolic CHF (congestive heart failure): Patient presented with clinical and radiographic evidence of CHF. Echocardiogram revealed EF of 30-35% with global hypokinesis. He was seen in consult by [facility] who provided lincoln recommendations for his cardiac care. Exact etiology of his cardiomyopathy was uncertain. Given his age an extensive work-up was undertaken to rule out various causes of his systolic CHF. The following were negative or normal - * WILL level * SPEP * ferritin (level was LOW, rather than elevated as is typical with hemochromatosis) * COVID-19 serum antibodies * COVID-19 nasal swab * TSH * HIV Thiamine level was pending at time of discharge. Patient may need cardiac catheterization to rule out CAD as cause of his cardiomyopathy but this is felt unlikely. He was diuresed throughout his stay with improved pulmonary symptoms. He was initiated on beta bryon, ARB, lasix, and potassium supplementation. He will follow-up with the [facility] CHF clinic within 1 week of discharge. Patient received significant counseling on fluid restriction (no more than 2 liters/day), salt restriction, daily weights, etc. CHF written instructions were given at discharge. (2) Cardiomyopathy: See above in "acute systolic CHF." (3) Abdominal pain: Throughout his stay the patient was blaming his GI symptoms on medications such as beta bryon. However, given his iron deficiency anemia and prior history of gastritis, I suspect that medication side effect is not the cause of his pain & other GI symptoms. On day of discharge symptoms improved with acid reducers. CT abd/pelvis did not reveal any specific pathology. LFTs were normal. Urinalysis was normal. Recommend GI referral post-discharge given his GI complaints and iron deficiency anemia. (4) History of gastritis: Patient reports prior h/o gastritis confirmed with EGD. His upper abdominal symptoms during the visit could be from recurrent gastritis, PUD, etc. The iron deficiency anemia would also support chronic GI blood loss from GI tract pathology. Thus, patient was placed on once daily PPI along with a 7-day course of carafate. He will need GI referral post-discharge for consideration of endoscopic evaluation. (5) Elevated serum creatinine: Cr ranged 1.4 to 1.6 during the stay. It was uncertain what his baseline creatinine is. He was seen in consult by [facility] nephrology. 24-hour urine collection was completed, and this showed CrCL of 70. His elevated Cr is likely due to large body habitus. Can't rule out intrinsic chronic kidney disease. Urinalysis was normal (no protein, no blood). (6) Prediabetes: HbA1C 6.2%. Handouts and counseling provided by DM educator. Weight loss needed. (7) Hepatic steatosis: As seen on imaging this admission. Weight loss advised. (8) Pulmonary nodule: 7mm, RLL, solid. Referral made to [facility]od[facility]. (9) Morbid obesity with BMI of 40.0-44.9, adult: BMI 41.5 (10) Iron deficiency anemia: Hb 11.5 while hospitalized. MCV <70. Ferritin level 18 consistent with iron deficiency. Patient has prior h/o gastritis several years ago. Given his significant GI symptoms during the hospital stay, iron deficiency anemia, and prior gastritis I recommended the following - * pantoprazole 40mg daily * carafate 1gm TID x 7 days * ferrous sulfate 325mg BID * GI consultation post-discharge for consideration of EGD and colonoscopy Total Time Total Time Spent Total Time Spent (In Minutes): 60 Total Time Includes: Examination of the Patient, Discharge Planning and Medication Reconciliation Discharge Plan Discharge Items Patient Disposition: Home - Self-Care Reason For Visit: SHORTNESS OF BREATH, PLEURAL EFFUSIONS Discharge Diagnosis: 1. congestive heart failure - uncertain cause. 2. nausea/dry heaves/etc - ?gastritis? Improved with IV pepcid and carafate liquid. Condition on Discharge: Good Activity: As commented below Activity Comment: light activities until seen by cardiology Sexual Activity: Wait until after follow-up appointment Exercise/Sports: Wait until after follow-up appointment Driving/Machine Use: Resume 1 day after discharge Non-emergency contact: Primary Care Provider and Cast Shell Grinder Call non-emergency contact if: you have any medication questions and your symptoms worsen Follow-up/Referrals: Neto Heath MD [Physician] - (you will need a referral to a GI specialist because of your possible gastritis and iron deficiency ) Yadi Hernandez PA-C [Physician Assembler Wet Wash] - 05/28/20 2:00 pm (Congestive Heart Failure Program Appointment Information Early follow up is essential to managing your heart failure. An appointment has been scheduled for you with the [facility] Program within 7 days of discharge. Anticipate this visit to be 30-60 minutes long. Please expect a professor of mathematics phone call from one of our nurses approximately 48 hours from discharge. They will also be placing an order for lab work to be completed 1-2 days prior to your heart failure follow up appointment. Please be sure to have this done so we can go over the results when you come in. Office Location The cardiology office building is located in front of the hospital at [address] Bring the following with you to your follow-up doctor appointments: Please bring your daily weight log any discharge paperwork all of your medication bottles with you to this visit. ) PCP,NO [Primary Care Provider] - (we will need to obtain a new family doctor/primary care doctor for you; we will set this up for you next week ) Diet: Carb Consistent or DM2 and Low Sodium (2gm) Fluids: 2000ml (8 cups) Addtl Attending Provider Instructions: You were admitted to the hospital because of congestive heart failure, also known as "CHF." There are different causes of CHF, and different types of CHF. At this time we do not know what caused your CHF. Your type of CHF is the form in which the heart pumping ability is reduced/decreased. Normal heart pumping ability is 60-65%. This number is called the "ejection fraction." Your heart pumping ability/ejection fraction is 30-35%. You may need additional tests as an outpatient to determine the cause of your CHF. The CHF caused water retention in the lungs and legs. The water retention improved with diuretic medication. You will need to take several medications at home for your heart including a diuretic. Your medications are: * metoprolol 50mg daily * losartan 25mg daily * furosemide (water pill/diuretic) 20mg every morning * potassium supplement daily Please see the CHF instructions below for additional details. When you get home it will be VERY IMPORTANT FOR YOU TO CHECK YOUR WEIGHT EVERY MORNING ON THE SAME SCALE. If your weight rises rapidly over short periods of time (1-2 days) this is typically a sign of fluid weight gain from your CHF. If you notice rapid weight gain please notify the nursing education consultant right away. Lastly, limit your total 24-hour fluid intake to no more than 2000cc (2 liters) and your salt intake to no more than 2000mg (2grams). We discovered that you have prediabetes. Your hemoglobin a1c test was 6.2%. Your prediabetes can be controlled through diet. Prediabetes is a precursor to diabetes. You would benefit from increasing protein and vegetables in your diet. Please decrease carbohydrates, breads, starches, sweets and sugars. You probably have sleep apnea. This is when you snore during sleep and stop breathing. You will need to have a sleep study ordered by your new primary care provider. You have a pulmonary nodule on your lung pictures. These are typically BENIGN (not harmful). [id number] your primary care provider will need to order a cat scan of your chest in six months to further evaluate this nodule. You are anemic (low red cells) due to iron deficiency. I am concerned you have been losing blood in your stools, perhaps as a result of a stomach problem (gastritis, ulcer, etc). You will need to take iron twice daily and see a GI specialist. They likely will recommend endoscopy to evaluate the stomach and other areas. I am concerned that you do indeed have gastritis again. Thus, I am sending you home on 2 medications for your stomach -- * pantoprazole 40mg daily * sucralfate 1gm three times a day for 7 days Please avoid alcohol and [id number] aspirin/motrin/naprosyn/etc. Follow-up -- * You will need to see the CHF clinic * You will need to get a new primary care doctor * You will need to get a referral to the GI doctor for your stomach Addtl Multi Share Program Coordinator Provider Instructions: Congestive Heart Failure (CHF) Instructions: Call your Cast Shell Grinder or Primary Care doctor if any of the following symptoms or problems start or get worse: * Shortness of breath or difficulty breathing * Wake up at night short of breath * Chest pain * Cough * Swelling of your hands, feet, or legs * More fatigued or tired with your normal activity * Palpitations - sudden fast heart beats WEIGHT * Weigh yourself every morning after using the bathroom. * Use the same scale. * Wear the same amount of clothing. * Write your weight down on a chart. * Call your Cast Shell Grinder if you gain more than 3 pounds in 1-2 days. This is typically a sign of taking on fluid weight from your congestive heart failure. MEDICATIONS * Use this discharge instruction sheet for medication instructions. * Take your medications at the time your doctor ordered. * Do not skip a dose of your medicines. * If you miss a dose of medicine, take it as soon as possible, but DO NOT DOUBLE A DOSE. * Read your medicine information when you get home. * Know all of the side effects of your medicine. If in doubt, ask your pharmacist * Call your Primary Care doctor's office if you have any side effects. * Be sure all of your doctors know what medicine and herbs you take (including cold, flu, and herbal medicine). Take the following with you to your follow-up doctor appointments: * Weight Chart * Medication List * List of questions Do not drink excessive alcohol, beer or wine. Pending Studies at Discharge: No Stand-Alone Forms: [facility], Smoking Cessation Medications and DC Order Prescriptions: New metoprolol succinate 50 mg Tablet Extended Release 24 Hr 50 mg PO QAM Qty: 30 RF: 2 losartan 25 mg Tablet 25 mg PO QAM Qty: 30 RF: 2 furosemide 20 mg Tablet 20 mg PO QAM Qty: 30 RF: 2 ferrous sulfate 325 mg (65 mg iron) Tablet,Delayed Release (Dr/Ec) 325 mg PO BID Qty: 60 RF: 2 potassium chloride [Klor-Con M10] 10 mEq Tablet,Er Particles/Crystals 10 meq PO DAILY Qty: 30 RF: 2 pantoprazole [Protonix] 40 mg tablet,delayed release (DR/EC) 40 mg PO QAM Qty: 30 RF: 2 sucralfate [Carafate] 1 gram tablet 1 g PO TID 7 Days Qty: 21 RF: 0 Continued albuterol sulfate [Ventolin HFA] 90 mcg/actuation Hfa Aerosol Inhaler 2 puff INHALATION DIRECTED PRN (Reason: Shortness Of Breath Or Wheezing) RF: 0 Discontinued ascorbic acid (vitamin C) [Vitamin C] 500 mg Tablet,Chewable 500 mg PO DAILY RF: 0 Discharge Orders: Discharge Order (Routine); Ordered 05/23/20 Ordered By: Gilbert Tran/Other Patient Handouts: Prediabetes, 5 Steps for Eating Healthier, Heart Failure, A1C Admission Data Admit Date/Time: 05/17/20 20:37 Attending Provider: Gilbert Souza Admit Provider: Kristen Naranjo Primary Care Provider: PCP,NO Other Providers: Chaz England ; Curtis Cavazos ; Vickie Romero Other Interventions: Discharge Summary Assessment (RN) Last Done: 05/23/20 18:04 Coding Level of Care Code D/C Day Management >30 mins Diagnoses Acute systolic CHF (congestive heart failure) I50.21 Cardiomyopathy I42.0 Cardiomyopathy type: dilated Abdominal pain R10.9 Abdominal location: unspecified location History of gastritis Z87.19 Elevated serum creatinine R79.89 Prediabetes R73.03 Hepatic steatosis K76.0 Pulmonary nodule R91.1 Morbid obesity with BMI of 40.0-44.9, adult E66.01; Z68.41 Iron deficiency anemia D50.9
[2020-05-23 19:49] LABS: CoV2 Total Antibody Negative (Negative)
--- NOTE | 2020-05-25 22:21 | Billing Data ---
Date of Service May 25, 2020 Coding Level of Care Code 84086 Initial Inpt Care Lvl 3
== END 2020-05-23 19:26 | disposition home or self-care (01) | DRG 292 ==
LOC: ED 15:41 → SUATTDRO 20:37 → 2S 20:37